=== PATIENT | female | born 1995 | race African-American/Black ===

== ENCOUNTER 2017-10-30 11:12 | Emergency (ER) | payer MEDICAID ==
--- NOTE | 2017-10-30 11:43 | EDM.PDOC ---
ED HPI GENERAL MEDICAL PROBLEM - General Chief Complaint: Abdominal Pain Stated Complaint: ABDOMINAL PAIN Time Seen by Provider: 10/30/17 11:30 Source of Information: Reports: Patient History Limitations: Reports: No Limitations - History of Present Illness INITIAL COMMENTS - FREE TEXT/NARRATIVE: History of present illness: []Patient had left pelvic pain yesterday and looked at her vagina with her fall she saw something bulging out of her. Her pain has subsided, she denies any fevers, chills, , nausea, vomiting or diarrhea. Patient states she's had a pelvic infection about a year ago and has unprotected intercourse with one partner. Patient states that she does not have vaginal discharge or bleeding but he feels like a pelvic infection. Review of systems: As per history of present illness and below otherwise all systems reviewed and negative. Past medical history: As per history of present illness and as reviewed below otherwise noncontributory. Surgical history: As per history of present illness and as reviewed below otherwise noncontributory. Social history: No reported history of drug or alcohol abuse. Family history: As per history of present illness and as reviewed below otherwise noncontributory. Physical exam: General: Well developed, well nourished in NAD HEENT: Atraumatic, normocephalic, pupils reactive, negative for conjunctival pallor or scleral icterus, mucous membranes moist, throat clear, neck supple, nontender, trachea midline. Lungs: Clear to auscultation, breath sounds equal bilaterally, chest nontender. Heart: S1S2, regular, negative for clicks, rubs, or JVD. Abdomen: Soft, nondistended, nontender. Negative for masses or hepatosplenomegaly. Negative for costovertebral tenderness. Pelvis: Stable nontender. Genitourinary: Attempted but patient was too tender to allow small speculum insertion, manual exam shows marked cervical motion tenderness Rectal: Deferred. Extremities: Atraumatic, negative for cords or calf pain. Neurovascular unremarkable. Neuro: Awake, alert, oriented. Cranial nerves II through XII unremarkable. Cerebellum unremarkable. Motor and sensory unremarkable throughout. Exam nonfocal. Diagnostics: [] Therapeutics: []Ceftriaxone and Zithromax Impression: []PID Plan partner should also be tested and treated for any STDs. Definitive disposition and diagnosis as appropriate pending reevaluation and review of above. Bilateral Abdominal Pain Score (Numeric/FACES): 7 - Related Data Allergies Allergy/AdvReac Type Severity Reaction Status Date / Time Penicillins Allergy Edema Verified 10/30/17 11:24 Home Meds: Home Meds . [No Known Home Meds] 10/30/17 [History] Past Medical History - Past Health History Medical/Surgical History: Denies Medical/Surgical History - Infectious Disease History Infectious Disease History: Reports: Herpes Social & Family History - Tobacco Use Smoking Status *Q: Never Smoker - Caffeine Use Caffeine Use: Reports: None - Recreational Drug Use Recreational Drug Use: No ED ROS GENERAL - Review of Systems Review Of Systems: ROS reveals no pertinent complaints other than HPI. ED EXAM, RENAL/ - Physical Exam Exam: See Below (see history of present illness) Course - Vital Signs Last Recorded V/S: Last Vital Signs Temp 97.6 F 10/30/17 13:17 Pulse 78 10/30/17 13:17 Resp 16 10/30/17 13:17 BP 110/78 10/30/17 13:17 Pulse Ox 100 10/30/17 13:17 - Orders/Labs/Meds Orders: Active Orders 24 hr Category Date Time Status Communication Order [RC] STAT Care 10/30/17 12:20 Active HCG QUALITATIVE,URINE [URCHEM] Stat Lab 10/30/17 11:50 Ordered UA W/MICROSCOPIC [URIN] Stat Lab 10/30/17 11:50 Ordered Labs: Laboratory Tests 10/30/17 10/30/17 Range/Units 11:50 11:50 Urine Color YELLOW Urine Appearance CLEAR Urine pH 6.5 (5.0-8.0) Ur Specific [place] <= 1.005 (1.001-1.035) Urine Protein NEGATIVE (NEGATIVE) mg/dL Urine Glucose (UA) NEGATIVE (NEGATIVE) mg/dL Urine Ketones NEGATIVE (NEGATIVE) mg/dL Urine Occult Blood NEGATIVE (NEGATIVE) Urine Nitrite NEGATIVE (NEGATIVE) Urine Bilirubin NEGATIVE (NEGATIVE) Urine Urobilinogen 0.2 (<2.0) EU/dL Ur Leukocyte Esterase NEGATIVE (NEGATIVE) Urine RBC 0-1 (0-2/HPF) Urine WBC 0-2 (0-5/HPF) Ur Epithelial Cells FEW (NONE-FEW) Urine Bacteria RARE (NEGATIVE) Urine HCG, Qual NEGATIVE (NEGATIVE) Meds: Medications Discontinued Medications Generic Name Dose Route Start Last Admin Trade Name Freq PRN Reason Stop Dose Admin Azithromycin 1,000 mg 10/30/17 13:05 10/30/17 13:13 Zithromax PO 10/30/17 13:06 1,000 mg ONETIME ONE Administration Azithromycin Confirm 10/30/17 13:11 Zithromax Administered 10/30/17 13:12 Dose 1,000 mg .ROUTE .STK-MED ONE Ceftriaxone Sodium 500 mg/ 1 mls @ 1 mls/sec 10/30/17 13:04 10/30/17 13:14 Lidocaine HCl IM 10/30/17 13:05 1 mls/sec ONETIME ONE Administration - Re-Assessments/Exams Free Text/Narrative Re-Assessment/Exam: I did look at this patient's picture on her fall which shows normal vaginal anatomy 10/30/17 11:42 Departure - Departure Time of Disposition: 17:13 Disposition: Home, Self-Care 01 Condition: Good Clinical Impression: PID (acute pelvic inflammatory disease) - Discharge Information *PRESCRIPTION DRUG MONITORING PROGRAM REVIEWED*: Not Applicable *COPY OF PRESCRIPTION DRUG MONITORING REPORT IN PATIENT CARINA: Not Applicable Instructions: Pelvic Inflammatory Disease, [id number] Referrals: PCP,None [Primary Care Provider] - Forms: ED Department Discharge Additional Instructions: The following information is given to patients seen in the emergency department who are being discharged to home. This information is to outline your options for follow-up care. We provide all patients seen in our emergency department with a follow-up referral. The need for follow-up, as well as the timing and circumstances, are variable depending upon the specifics of your emergency department visit. If you don't have a primary care physician on staff, we will provide you with a referral. We always advise you to contact your personal physician following an emergency department visit to inform them of the circumstance of the visit and for follow-up with them and/or the need for any referrals to a consulting specialist. The emergency department will also refer you to a specialist when appropriate. This referral assures that you have the opportunity for follow-up care with a specialist. All of these measure are taken in an effort to provide you with optimal care, which includes your follow-up. Under all circumstances we always encourage you to contact your private physician who remains a resource for coordinating your care. When calling for follow-up care, please make the office aware that this follow-up is from your recent emergency room visit. If for any reason you are refused follow-up, please contact the [facility] Emergency Department at and asked to speak to the emergency department charge nurse. [facility] - [facility] [place] [id number] - My Orders Last 24 Hours: My Active Orders 10/30/17 11:50 HCG QUALITATIVE,URINE [URCHEM] Stat UA W/MICROSCOPIC [URIN] Stat 10/30/17 12:20 Communication Order [RC] STAT - Assessment/Plan Last 24 Hours: My Active Orders 10/30/17 11:50 HCG QUALITATIVE,URINE [URCHEM] Stat UA W/MICROSCOPIC [URIN] Stat 10/30/17 12:20 Communication Order [RC] STAT
[2017-10-30] MEDS ORDERED: cefTRIAXone 500 MG in Lidocaine 1% 1 ML IM ONE (13:04)
[2017-10-30] MEDS ORDERED: Azithromycin 250 MG Tab PO ONE (13:05)
[2017-10-30] MEDS ORDERED: Azithromycin 250 MG Tab ONE (13:11)
== END 2017-10-30 13:45 | disposition home or self-care (01) ==
LOC: MW.ED 11:12
DX: N73.9 Female pelvic inflammatory disease, unspecified (principal); Z88.0 Allergy status to penicillin
CPT/HCPCS: 81001; 81025; 96372; 99284; A9270; J0696; 99283

== ENCOUNTER 2018-08-12 13:43 | Emergency (ER) | payer MEDICAID ==
--- NOTE | 2018-08-12 14:00 | EDM.PDOC ---
ED HPI GENERAL MEDICAL PROBLEM - General Chief Complaint: Genitourinary Problem Stated Complaint: CHECK UP Time Seen by Provider: 08/12/18 13:45 Source of Information: Reports: Patient History Limitations: Reports: No Limitations - History of Present Illness INITIAL COMMENTS - FREE TEXT/NARRATIVE: HISTORY AND PHYSICAL: History of present illness: Patient is a 23-year-old female who presents to the emergency room with complaints of pelvic pain. She states she noticed this last evening after having sexual intercourse. Since that time she has had pelvic discomfort and vaginal discharge. She states she does have a history of PID and STDs, which have been treated with antibiotics. Patient denies any fever, chills, headache, change in vision, syncope or near syncope. Denies any chest pain, back pain, shortness of breath or cough. Denies any nausea, vomiting, diarrhea, constipation or dysuria. Has not noted any blood in urine or stool. Patient has been eating and drinking appropriately. 1, Para 0. Review of systems: As per history of present illness and below otherwise all systems reviewed and negative. Past medical history: As per history of present illness and as reviewed below otherwise noncontributory. Surgical history: As per history of present illness and as reviewed below otherwise noncontributory. Social history: See social history for further information Family history: As per history of present illness and as reviewed below otherwise noncontributory. Physical exam: General: Well-developed and well-nourished 23-year-old -[place] female. Alert and oriented. Nontoxic appearing and in no acute distress. HEENT: Atraumatic, normocephalic, pupils equal and reactive bilaterally, negative for conjunctival pallor or scleral icterus, mucous membranes moist, TMs normal bilaterally, throat clear, neck supple, nontender, trachea midline. No drooling or trismus noted. No meningeal signs. No hot potato voice noted. Lungs: Clear to auscultation, breath sounds equal bilaterally, chest nontender. Heart: S1S2, regular rate and rhythm without overt murmur Abdomen: Soft, nondistended, nontender. Negative for masses or hepatosplenomegaly. Negative for costovertebral tenderness. Pelvis: Stable nontender. Genitourinary: This was done with consent and a fishing instructor at the bedside. Normal -appearing external genitalia. She does have moderate amount of white discharge noted in the vaginal vault. Patient tolerated pelvic exam fair. No cervical motion tenderness. Rectal: Deferred. Skin: Intact, warm, dry. No lesions or rashes noted. Extremities: Atraumatic, moves all extremities per self without difficulty or deficits, negative for cords or calf pain. Neurovascular unremarkable. Neuro: Awake, alert, oriented. Cranial nerves II through XII unremarkable. Cerebellum unremarkable. Motor and sensory unremarkable throughout. Exam nonfocal. Notes: Patient is positive for Gardnerella and candidiasis. We'll treat with Diflucan and Flagyl. Supportive care measures were reviewed and discussed. Encouraged her to follow-up with an PIGMENT MAKING SUPERVISOR or primary care for further evaluation and management of this. Voices understanding and is agreeable to plan of care. Denies any further questions or concerns at this time. Diagnostics: CBC, CMP, UA, UC, wet prep, gonorrhea and chlamydia Therapeutics: None Prescription: Flagyl BID x 7 days Diflucan Impression: Bacterial Vaginosis Candidiasis Plan: 1. While taking the medications avoid an sexual activity. 2. No alcohol while taking the Flagyl as this can cause severe nausea and vomiting 3. Please follow-up with the PIGMENT MAKING SUPERVISOR as we discussed. Return to the ED as needed and as discussed. Definitive disposition and diagnosis as appropriate pending reevaluation and review of above. Vaginal Pain Score (Numeric/FACES): 7 - Related Data Allergies Allergy/AdvReac Type Severity Reaction Status Date / Time Penicillins Allergy Edema Verified 08/12/18 14:06 Home Meds: Home Meds . [No Known Home Meds] 10/30/17 [History] Past Medical History - Past Health History Medical/Surgical History: Denies Medical/Surgical History - Infectious Disease History Infectious Disease History: Reports: Herpes Social & Family History - Caffeine Use Caffeine Use: Reports: None ED ROS GENERAL - Review of Systems Review Of Systems: ROS reveals no pertinent complaints other than HPI. ED EXAM, RENAL/ - Physical Exam Exam: See Below (See dictation) Course - Vital Signs Last Recorded V/S: Last Vital Signs Temp 98.3 F 08/12/18 14:03 Pulse 78 08/12/18 15:16 Resp 18 08/12/18 15:16 BP 122/76 08/12/18 15:16 Pulse Ox 98 08/12/18 15:16 - Orders/Labs/Meds Orders: Active Orders 24 hr Category Date Time Status CHLAMYDIA AND GONORRHEA BY TMA Stat Lab 08/12/18 14:30 Received CULTURE URINE [RM] Stat Lab 08/12/18 14:24 Received Labs: Laboratory Tests 08/12/18 08/12/18 08/12/18 Range/Units 14:22 14:22 14:24 WBC 5.48 (4.0-11.0) K/uL RBC 4.91 (4.30-5.90) M/uL Hgb 14.3 (12.0-16.0) g/dL Hct 43.9 (36.0-46.0) % MCV 89.4 (80.0-98.0) fL MCH 29.1 (27.0-32.0) pg MCHC 32.6 (31.0-37.0) g/dL RDW Std Deviation 45.9 (28.0-62.0) fl RDW Coeff of Dalia 14 (11.0-15.0) % Plt Count 317 (150-400) K/uL MPV 10.80 (7.40-12.00) fL Neut % (Auto) 55.9 (48.0-80.0) % Lymph % (Auto) 32.7 (16.0-40.0) % [place] % (Auto) 8.6 (0.0-15.0) % Eos % (Auto) 2.4 (0.0-7.0) % Baso % (Auto) 0.4 (0.0-1.5) % Neut # (Auto) 3.1 (1.4-5.7) K/uL Lymph # (Auto) 1.8 (0.6-2.4) K/uL [place] # (Auto) 0.5 (0.0-0.8) K/uL Eos # (Auto) 0.1 (0.0-0.7) K/uL Baso # (Auto) 0.0 (0.0-0.1) K/uL Nucleated RBC % 0.0 /100WBC Nucleated RBCs # 0 K/uL Sodium 140 (136-145) mmol/L Potassium 3.7 (3.5-5.1) mmol/L Chloride 105 (98-107) mmol/L Carbon Dioxide 22.3 (21.0-32.0) mmol/L BUN 16 (7.0-18.0) mg/dL Creatinine 0.8 (0.6-1.0) mg/dL Est Cr Clr Drug Dosing 79.90 mL/min Estimated GFR (MDRD) > 60.0 ml/min Glucose 76 (74-106) mg/dL Calcium 9.5 (8.5-10.1) mg/dL Total Bilirubin 0.3 (0.2-1.0) mg/dL AST 21 (15-37) IU/L ALT 28 (14-63) IU/L Alkaline Phosphatase 73 (46-116) U/L Total Protein 8.3 H (6.4-8.2) g/dL Albumin 3.8 (3.4-5.0) g/dL Globulin 4.5 H (2.6-4.0) g/dL Albumin/Globulin Ratio 0.8 L (0.9-1.6) Urine Color YELLOW Urine Appearance CLEAR Urine pH 5.5 (5.0-8.0) Ur Specific [place] >= 1.030 (1.001-1.035) Urine Protein NEGATIVE (NEGATIVE) mg/dL Urine Glucose (UA) NEGATIVE (NEGATIVE) mg/dL Urine Ketones NEGATIVE (NEGATIVE) mg/dL Urine Occult Blood TRACE-INTACT H (NEGATIVE) Urine Nitrite NEGATIVE (NEGATIVE) Urine Bilirubin NEGATIVE (NEGATIVE) Urine Urobilinogen 0.2 (<2.0) EU/dL Ur Leukocyte Esterase TRACE H (NEGATIVE) Urine RBC 0-2 (0-2/HPF) Urine WBC 2-4 (0-5/HPF) Ur Epithelial Cells MODERATE (NONE-FEW) Amorphous Sediment LIGHT (NEGATIVE) Urine Bacteria FEW (NEGATIVE) Urine Mucus LIGHT (NONE-MOD) Urine HCG, Qual (NEGATIVE) [place] species DNA (NEGATIVE) Gardnerella DNA Probe (NEGATIVE) Trichomonas DNA Probe (NEGATIVE) 08/12/18 08/12/18 Range/Units 14:24 14:30 WBC (4.0-11.0) K/uL RBC (4.30-5.90) M/uL Hgb (12.0-16.0) g/dL Hct (36.0-46.0) % MCV (80.0-98.0) fL MCH (27.0-32.0) pg MCHC (31.0-37.0) g/dL RDW Std Deviation (28.0-62.0) fl RDW Coeff of Dalia (11.0-15.0) % Plt Count (150-400) K/uL MPV (7.40-12.00) fL Neut % (Auto) (48.0-80.0) % Lymph % (Auto) (16.0-40.0) % [place] % (Auto) (0.0-15.0) % Eos % (Auto) (0.0-7.0) % Baso % (Auto) (0.0-1.5) % Neut # (Auto) (1.4-5.7) K/uL Lymph # (Auto) (0.6-2.4) K/uL [place] # (Auto) (0.0-0.8) K/uL Eos # (Auto) (0.0-0.7) K/uL Baso # (Auto) (0.0-0.1) K/uL Nucleated RBC % /100WBC Nucleated RBCs # K/uL Sodium (136-145) mmol/L Potassium (3.5-5.1) mmol/L Chloride (98-107) mmol/L Carbon Dioxide (21.0-32.0) mmol/L BUN (7.0-18.0) mg/dL Creatinine (0.6-1.0) mg/dL Est Cr Clr Drug Dosing mL/min Estimated GFR (MDRD) ml/min Glucose (74-106) mg/dL Calcium (8.5-10.1) mg/dL Total Bilirubin (0.2-1.0) mg/dL AST (15-37) IU/L ALT (14-63) IU/L Alkaline Phosphatase (46-116) U/L Total Protein (6.4-8.2) g/dL Albumin (3.4-5.0) g/dL Globulin (2.6-4.0) g/dL Albumin/Globulin Ratio (0.9-1.6) Urine Color Urine Appearance Urine pH (5.0-8.0) Ur Specific [place] (1.001-1.035) Urine Protein (NEGATIVE) mg/dL Urine Glucose (UA) (NEGATIVE) mg/dL Urine Ketones (NEGATIVE) mg/dL Urine Occult Blood (NEGATIVE) Urine Nitrite (NEGATIVE) Urine Bilirubin (NEGATIVE) Urine Urobilinogen (<2.0) EU/dL Ur Leukocyte Esterase (NEGATIVE) Urine RBC (0-2/HPF) Urine WBC (0-5/HPF) Ur Epithelial Cells (NONE-FEW) Amorphous Sediment (NEGATIVE) Urine Bacteria (NEGATIVE) Urine Mucus (NONE-MOD) Urine HCG, Qual NEGATIVE (NEGATIVE) [place] species DNA POSITIVE H (NEGATIVE) Gardnerella DNA Probe POSITIVE H (NEGATIVE) Trichomonas DNA Probe NEGATIVE (NEGATIVE) Departure - Departure Time of Disposition: 15:48 Disposition: Home, Self-Care 01 Clinical Impression: Bacterial vaginosis, Candidiasis - Discharge Information Instructions: Bacterial Vaginosis, [id number] Referrals: PCP,Unknown [Primary Care Provider] - Forms: ED Department Discharge Additional Instructions: The following information is given to patients seen in the emergency department who are being discharged to home. This information is to outline your options for follow-up care. We provide all patients seen in our emergency department with a follow-up referral. The need for follow-up, as well as the timing and circumstances, are variable depending upon the specifics of your emergency department visit. If you don't have a primary care physician on staff, we will provide you with a referral. We always advise you to contact your personal physician following an emergency department visit to inform them of the circumstance of the visit and for follow-up with them and/or the need for any referrals to a consulting specialist. The emergency department will also refer you to a specialist when appropriate. This referral assures that you have the opportunity for follow-up care with a specialist. All of these measure are taken in an effort to provide you with optimal care, which includes your follow-up. Under all circumstances we always encourage you to contact your private physician who remains a resource for coordinating your care. When calling for follow-up care, please make the office aware that this follow-up is from your recent emergency room visit. If for any reason you are refused follow-up, please contact the [facility] Emergency Department at and asked to speak to the emergency department charge nurse. [facility] [address] [place] [id number] [facility] [address] [place] [address] 1. While taking the medications avoid an sexual activity. 2. No alcohol while taking the Flagyl as this can cause severe nausea and vomiting 3. Please follow-up with the PIGMENT MAKING SUPERVISOR as we discussed. Return to the ED as needed and as discussed. - My Orders Last 24 Hours: My Active Orders 08/12/18 14:24 CULTURE URINE [RM] Stat 08/12/18 14:30 CHLAMYDIA AND GONORRHEA BY TMA Stat - Assessment/Plan Last 24 Hours: My Active Orders 08/12/18 14:24 CULTURE URINE [RM] Stat 08/12/18 14:30 CHLAMYDIA AND GONORRHEA BY TMA Stat
[2018-08-12 15:03] LABS: CHLORIDE,CL 105 mmol/L (98-107); SODIUM,NA 140 mmol/L (136-145)
== END 2018-08-12 16:00 | disposition home or self-care (01) ==
LOC: MW.ED 13:43
DX: N76.0 Acute vaginitis (principal); B96.89 Other specified bacterial agents as the cause of diseases classified elsewhere; B37.3 Candidiasis of vulva and vagina
CPT/HCPCS: 36415; 80053; 81001; 81025; 85025; 87086; 87480; 87491; 87510; 87591; 87660; 99283

== ENCOUNTER 2019-03-02 18:22 | Emergency (ER) | payer MEDICAID, OTHER, SELFPAY ==
--- NOTE | 2019-03-02 18:34 | EDM.PDOC ---
ED HPI GENERAL MEDICAL PROBLEM - General Chief Complaint: General Stated Complaint: PRESSURE IN PELVIC AREA Time Seen by Provider: 03/02/19 18:31 Source of Information: Reports: Patient History Limitations: Reports: No Limitations - History of Present Illness INITIAL COMMENTS - FREE TEXT/NARRATIVE: HISTORY AND PHYSICAL: History of present illness: Patient is a 24-year-old female who presents to the emergency room today with complaints of urinary frequency and pelvic pressure. She is concerned she may have a bladder infection. She states she is also concerned she may be . She has been having unprotected sex with her boyfriend. States she has not intentionally trying to get , and does not take control. I saw this patient on 08/12/18 for concerns of PID and STDs. At that time she did test positive for bacterial vaginosis/candidiasis and was treated with Diflucan and Flagyl. She states she has no current concerns of STDs as she has been monogamous with her boyfriend. Denies any vaginal discharge, bleeding or odor. Patient denies any fever, chills, headache, change in vision, syncope or near syncope. Denies any chest pain, back pain, shortness of breath or cough. Denies any abdominal pain, nausea, vomiting, diarrhea, constipation or dysuria. Has not noted any blood in urine or stool. Patient has been eating and drinking appropriately. Review of systems: As per history of present illness and below otherwise all systems reviewed and negative. Past medical history: As per history of present illness and as reviewed below otherwise noncontributory. Surgical history: As per history of present illness and as reviewed below otherwise noncontributory. Social history: See social history for further information Family history: As per history of present illness and as reviewed below otherwise noncontributory. Physical exam: General: Well-developed and well-nourished 24-year-old -[place] female. Alert and oriented. Nontoxic appearing and in no acute distress. HEENT: Atraumatic, normocephalic, pupils equal and reactive bilaterally, negative for conjunctival pallor or scleral icterus, mucous membranes moist, trachea midline. No drooling or trismus noted. No meningeal signs. No hot potato voice noted. Lungs: Clear to auscultation, breath sounds equal bilaterally, chest nontender. Heart: S1S2, regular rate and rhythm without overt murmur Abdomen: Soft, nondistended, nontender. Negative for masses or hepatosplenomegaly. Negative for costovertebral tenderness. Pelvis: Stable. Suprapubic tenderness Skin: Intact, warm, dry. No lesions or rashes noted. Extremities: Atraumatic, moves all extremities per self without difficulty or deficits, negative for cords or calf pain. Neurovascular unremarkable. Neuro: Awake, alert, oriented. Cranial nerves II through XII unremarkable. Cerebellum unremarkable. Motor and sensory unremarkable throughout. Exam nonfocal. Notes: Lab work is unremarkable. We discussed that if she has any further complaints or concerns she should follow up with the primary care provider. She re-states that she does not have any concerns of STDs. Supportive care measures were reviewed and discussed. Voices understanding and is agreeable to plan of care. Denies any further questions or concerns at this time. Diagnostics: UA, HCGU Therapeutics: None Prescription: None Impression: Encounter for medical screening exam Plan: 1. Please use protection when having sex. If pelvic pain persists I would recommend getting checked for STDs. This can be done at [facility]. 2. Use Tylenol and/or ibuprofen as needed for pain management. 3. Establish care with a primary care provider for your health needs and reevaluation. Return to the ED as needed and as discussed. Definitive disposition and diagnosis as appropriate pending reevaluation and review of above. Pelvic Pain Score (Numeric/FACES): 6 - Related Data Allergies Allergy/AdvReac Type Severity Reaction Status Date / Time Penicillins Allergy Edema Verified 03/02/19 18:34 Home Meds: Home Meds . [No Known Home Meds] 10/30/17 [History] Past Medical History - Past Health History Medical/Surgical History: Denies Medical/Surgical History - Infectious Disease History Infectious Disease History: Reports: Herpes Social & Family History - Family History Family Medical History: Noncontributory - Caffeine Use Caffeine Use: Reports: None ED ROS GENERAL - Review of Systems Review Of Systems: Comprehensive ROS is negative, except as noted in HPI. ED EXAM, GENERAL - Physical Exam Exam: See Below (See dictation) Course - Vital Signs Last Recorded V/S: Last Vital Signs Temp 97 F 03/02/19 19:25 Pulse 87 03/02/19 19:25 Resp 18 03/02/19 19:25 BP 125/77 03/02/19 19:25 Pulse Ox 95 03/02/19 19:25 - Orders/Labs/Meds Labs: Laboratory Tests 03/02/19 03/02/19 Range/Units 19:00 19:00 Urine Color YELLOW Urine Appearance CLEAR Urine pH 8.5 H (5.0-8.0) Ur Specific [place] 1.015 (1.001-1.035) Urine Protein NEGATIVE (NEGATIVE) mg/dL Urine Glucose (UA) NEGATIVE (NEGATIVE) mg/dL Urine Ketones NEGATIVE (NEGATIVE) mg/dL Urine Occult Blood NEGATIVE (NEGATIVE) Urine Nitrite NEGATIVE (NEGATIVE) Urine Bilirubin NEGATIVE (NEGATIVE) Urine Urobilinogen 0.2 (<2.0) EU/dL Ur Leukocyte Esterase NEGATIVE (NEGATIVE) Urine HCG, Qual NEGATIVE (NEGATIVE) Departure - Departure Time of Disposition: 19:20 Disposition: Home, Self-Care 01 Clinical Impression: Encounter for medical screening examination - Discharge Information Instructions: Medical Screening Exam Referrals: PCP,Not In Area [Primary Care Provider] - Forms: ED Department Discharge Additional Instructions: The following information is given to patients seen in the emergency department who are being discharged to home. This information is to outline your options for follow-up care. We provide all patients seen in our emergency department with a follow-up referral. The need for follow-up, as well as the timing and circumstances, are variable depending upon the specifics of your emergency department visit. If you don't have a primary care physician on staff, we will provide you with a referral. We always advise you to contact your personal physician following an emergency department visit to inform them of the circumstance of the visit and for follow-up with them and/or the need for any referrals to a consulting specialist. The emergency department will also refer you to a specialist when appropriate. This referral assures that you have the opportunity for follow-up care with a specialist. All of these measure are taken in an effort to provide you with optimal care, which includes your follow-up. Under all circumstances we always encourage you to contact your private physician who remains a resource for coordinating your care. When calling for follow-up care, please make the office aware that this follow-up is from your recent emergency room visit. If for any reason you are refused follow-up, please contact the [facility] Emergency Department at and asked to speak to the emergency department charge nurse. [facility] [address] [place] [address] [facility] [address] [place] [address] [facility] (STD screening) [address] [facility] 1. Please use protection when having sex. If pelvic pain persists I would recommend getting checked for STDs. This can be done at [facility]. 2. Use Tylenol and/or ibuprofen as needed for pain management. 3. Establish care with a primary care provider for your health needs and reevaluation. Return to the ED as needed and as discussed.
== END 2019-03-02 19:25 | disposition home or self-care (01) ==
LOC: MW.ED 18:22
DX: R35.0 Frequency of micturition (principal); Z88.0 Allergy status to penicillin
CPT/HCPCS: 81003; 81025; 99282; 99284

== ENCOUNTER 2019-04-25 02:33 | Emergency (ER) | payer SELFPAY ==
--- NOTE | 2019-04-25 03:06 | EDM.PDOC ---
ED HPI GENERAL MEDICAL PROBLEM - General Chief Complaint: Lower Extremity Injury/Pain Stated Complaint: PELVIC PAIN Time Seen by Provider: 04/25/19 03:05 Source of Information: Reports: Patient History Limitations: Reports: No Limitations - History of Present Illness INITIAL COMMENTS - FREE TEXT/NARRATIVE: -25year-old female presents the emergency room chief complaint of right-sided flank pain and dysuria for the past 3 months. Patient denies fever chills or vaginal discharge Onset: Gradual Duration: Week(s): Location: Reports: Back, Pelvis Quality: Reports: Ache Severity: Mild Improves with: Reports: None Worsens with: Reports: None Associated Symptoms: Reports: No Other Symptoms, Nausea/Vomiting, Weakness right hip Pain Score (Numeric/FACES): 7 - Related Data Allergies Allergy/AdvReac Type Severity Reaction Status Date / Time Penicillins Allergy Edema Verified 04/25/19 02:46 Home Meds: Home Meds . [No Known Home Meds] 10/30/17 [History] Past Medical History - Past Health History Medical/Surgical History: Denies Medical/Surgical History HEENT History: Reports: None Cardiovascular History: Reports: None Respiratory History: Reports: None Gastrointestinal History: Reports: None Genitourinary History: Reports: None OFFICE ENGINEER History: Reports: None Musculoskeletal History: Reports: None Neurological History: Reports: None Psychiatric History: Reports: None Endocrine/Metabolic History: Reports: None Insulin Pump Model and Traffic Control Supervisor: None Hematologic History: Reports: None Immunologic History: Reports: None Oncologic (Cancer) History: Reports: None Dermatologic History: Reports: None - Infectious Disease History Infectious Disease History: Reports: Herpes - Past Surgical History Head Surgeries/Procedures: Reports: None Social & Family History - Family History Family Medical History: Noncontributory - Tobacco Use Smoking Status *Q: Never Smoker - Caffeine Use Caffeine Use: Reports: None - Recreational Drug Use Recreational Drug Use: No Review of Systems - Review of Systems Review Of Systems: Comprehensive ROS is negative, except as noted in HPI. ED EXAM, GENERAL - Physical Exam Exam: Not Obtained Exam Limited By: No Limitations General Appearance: Alert, WD/WN, No Apparent Distress Eye Exam: Bilateral Eye: PERRL Ears: Normal External Exam, Normal TMs Ear Exam: Bilateral Ear: Auricle Normal, Canal Normal, TM normal Course - Vital Signs Text/Narrative:: 4-year-old female presents the emergency room with right-sided abdominal pain pain going to the back. Patient in the midst of evaluation unable to get CT scan of the abdomen results at this time. The patient did not wish to stay to obtain these results so she left home eloped. Patient having no pain at this time. Patients is pain at this time patient might have had #1. Stone 2. Lower abdominal pain Last Recorded V/S: Last Vital Signs Temp 98.8 F 04/25/19 02:45 Pulse 92 04/25/19 02:45 Resp 18 04/25/19 02:45 BP 128/87 04/25/19 02:45 Pulse Ox 98 04/25/19 02:45 - Orders/Labs/Meds Orders: Active Orders 24 hr Category Date Time Status Abdomen Pelvis wo Cont [CT] Stat Exams 04/25/19 03:02 Taken Labs: Laboratory Tests 04/25/19 04/25/19 04/25/19 Range/Units 02:45 02:45 03:10 WBC 7.33 (4.0-11.0) K/uL RBC 4.77 (4.30-5.90) M/uL Hgb 14.3 (12.0-16.0) g/dL Hct 43.0 (36.0-46.0) % MCV 90.1 (80.0-98.0) fL MCH 30.0 (27.0-32.0) pg MCHC 33.3 (31.0-37.0) g/dL RDW Std Deviation 44.3 (28.0-62.0) fl RDW Coeff of Dalia 14 (11.0-15.0) % Plt Count 359 (150-400) K/uL MPV 10.10 (7.40-12.00) fL Neut % (Auto) 53.0 (48.0-80.0) % Lymph % (Auto) 38.6 (16.0-40.0) % Dawes % (Auto) 7.1 (0.0-15.0) % Eos % (Auto) 1.2 (0.0-7.0) % Baso % (Auto) 0.1 (0.0-1.5) % Neut # (Auto) 3.9 (1.4-5.7) K/uL Lymph # (Auto) 2.8 H (0.6-2.4) K/uL Dawes # (Auto) 0.5 (0.0-0.8) K/uL Eos # (Auto) 0.1 (0.0-0.7) K/uL Baso # (Auto) 0.0 (0.0-0.1) K/uL Nucleated RBC % 0.0 /100WBC Nucleated RBCs # 0 K/uL Sodium (136-145) mmol/L Potassium (3.5-5.1) mmol/L Chloride (98-107) mmol/L Carbon Dioxide (21.0-32.0) mmol/L BUN (7.0-18.0) mg/dL Creatinine (0.6-1.0) mg/dL Est Cr Clr Drug Dosing mL/min Estimated GFR (MDRD) ml/min Glucose (74-106) mg/dL Calcium (8.5-10.1) mg/dL Total Bilirubin (0.2-1.0) mg/dL AST (15-37) IU/L ALT (14-63) IU/L Alkaline Phosphatase (46-116) U/L Total Protein (6.4-8.2) g/dL Albumin (3.4-5.0) g/dL Globulin (2.6-4.0) g/dL Albumin/Globulin Ratio (0.9-1.6) Urine Color YELLOW Urine Appearance CLEAR Urine pH 7.0 (5.0-8.0) Ur Specific [place] 1.020 (1.001-1.035) Urine Protein NEGATIVE (NEGATIVE) mg/dL Urine Glucose (UA) NEGATIVE (NEGATIVE) mg/dL Urine Ketones TRACE H (NEGATIVE) mg/dL Urine Occult Blood TRACE-INTACT H (NEGATIVE) Urine Nitrite NEGATIVE (NEGATIVE) Urine Bilirubin NEGATIVE (NEGATIVE) Urine Urobilinogen 0.2 (<2.0) EU/dL Ur Leukocyte Esterase NEGATIVE (NEGATIVE) Urine RBC 1-2 (0-2/HPF) Urine WBC 0-1 (0-5/HPF) Ur Epithelial Cells OCCASIONAL (NONE-FEW) Urine Bacteria RARE (NEGATIVE) Urine HCG, Qual NEGATIVE (NEGATIVE) 04/25/19 Range/Units 03:10 WBC (4.0-11.0) K/uL RBC (4.30-5.90) M/uL Hgb (12.0-16.0) g/dL Hct (36.0-46.0) % MCV (80.0-98.0) fL MCH (27.0-32.0) pg MCHC (31.0-37.0) g/dL RDW Std Deviation (28.0-62.0) fl RDW Coeff of Dalia (11.0-15.0) % Plt Count (150-400) K/uL MPV (7.40-12.00) fL Neut % (Auto) (48.0-80.0) % Lymph % (Auto) (16.0-40.0) % Dawes % (Auto) (0.0-15.0) % Eos % (Auto) (0.0-7.0) % Baso % (Auto) (0.0-1.5) % Neut # (Auto) (1.4-5.7) K/uL Lymph # (Auto) (0.6-2.4) K/uL Dawes # (Auto) (0.0-0.8) K/uL Eos # (Auto) (0.0-0.7) K/uL Baso # (Auto) (0.0-0.1) K/uL Nucleated RBC % /100WBC Nucleated RBCs # K/uL Sodium 140 (136-145) mmol/L Potassium 3.4 L (3.5-5.1) mmol/L Chloride 101 (98-107) mmol/L Carbon Dioxide 27.5 (21.0-32.0) mmol/L BUN 12 (7.0-18.0) mg/dL Creatinine 0.8 (0.6-1.0) mg/dL Est Cr Clr Drug Dosing 79.23 mL/min Estimated GFR (MDRD) > 60.0 ml/min Glucose 109 H (74-106) mg/dL Calcium 9.2 (8.5-10.1) mg/dL Total Bilirubin 0.2 (0.2-1.0) mg/dL AST 19 (15-37) IU/L ALT 36 (14-63) IU/L Alkaline Phosphatase 64 (46-116) U/L Total Protein 8.3 H (6.4-8.2) g/dL Albumin 4.3 (3.4-5.0) g/dL Globulin 4.0 (2.6-4.0) g/dL Albumin/Globulin Ratio 1.1 (0.9-1.6) Urine Color Urine Appearance Urine pH (5.0-8.0) Ur Specific [place] (1.001-1.035) Urine Protein (NEGATIVE) mg/dL Urine Glucose (UA) (NEGATIVE) mg/dL Urine Ketones (NEGATIVE) mg/dL Urine Occult Blood (NEGATIVE) Urine Nitrite (NEGATIVE) Urine Bilirubin (NEGATIVE) Urine Urobilinogen (<2.0) EU/dL Ur Leukocyte Esterase (NEGATIVE) Urine RBC (0-2/HPF) Urine WBC (0-5/HPF) Ur Epithelial Cells (NONE-FEW) Urine Bacteria (NEGATIVE) Urine HCG, Qual (NEGATIVE) Departure - Departure Time of Disposition: 06:22 Disposition: Eloped 07 Condition: Good Clinical Impression: Abdominal pain determined by examination - Discharge Information Referrals: PCP,None [Primary Care Provider] - Forms: ED Department Discharge Sepsis Event Note - Evaluation Sepsis Screening Result: No Definite Risk - Focused Exam Vital Signs: Vital Signs Temp Pulse Resp BP Pulse Ox 04/25/19 02:45 98.8 F 92 18 128/87 98 Date Exam was Performed: 04/25/19 Time Exam was Performed: 06:21 - My Orders Last 24 Hours: My Active Orders 04/25/19 03:02 Abdomen Pelvis wo Cont [CT] Stat - Assessment/Plan Last 24 Hours: My Active Orders 04/25/19 03:02 Abdomen Pelvis wo Cont [CT] Stat
[2019-04-25 03:34] LABS: BLOOD UREA NITROGEN,BUN 12 mg/dL (7.0-18.0); CARBON DIOXIDE,CO2 27.5 mmol/L (21.0-32.0); CHLORIDE,CL 101 mmol/L (98-107); GLUCOSE RANDOM 109 mg/dL (74-106); POTASSIUM,K 3.4 mmol/L (3.5-5.1); SODIUM,NA 140 mmol/L (136-145)
--- NOTE | 2019-04-25 06:52 | CT ---
CT abdomen and pelvis Technique: Multiple axial sections were obtained from above the dome of the diaphragm inferiorly through the pubic symphysis. Intravenous and oral contrast not utilized. Comparison: No prior abdominal imaging. Findings: Visualized lung bases show nothing acute. Liver contains no focal abnormality. Spleen appears within normal limits. Kidneys show no hydronephrosis or mass. Adrenal glands show no nodule. No discrete abnormality appreciated within the pancreas. Aorta shows no aneurysm. Appendix is seen which is normal in size. No discrete pelvic mass or adenopathy is seen. Slight increased stool is seen within portions of the colon. No free fluid or inflammatory change is seen. Bone window settings were reviewed which appear within normal limits for the patient's age. Impression: 1. Slight increased stool within the colon. 2. Nothing acute is appreciated on noncontrast CT study of the abdomen and pelvis. Diagnostic code #2 This report was dictated in [place] Standard Time
== END 2019-04-25 05:42 | disposition left against medical advice (07) ==
LOC: MW.ED 02:33
DX: R10.9 Unspecified abdominal pain (principal); Z88.0 Allergy status to penicillin
CPT/HCPCS: 36415; 74176; 74176-26; 80053; 81001; 81025; 85025; 99284-25

== ENCOUNTER 2019-06-25 19:23 | Emergency (ER) | payer MEDICAID, OTHER ==
--- NOTE | 2019-06-25 20:44 | EDM.PDOC ---
ED HPI GENERAL MEDICAL PROBLEM - General Chief Complaint: General Stated Complaint: FLU Time Seen by Provider: 06/25/19 19:57 Source of Information: Reports: Patient History Limitations: Reports: No Limitations - History of Present Illness INITIAL COMMENTS - FREE TEXT/NARRATIVE: 54-year-old female presents with 9-day history of perirectal pain and a four- day history of fever of unknown source. Patient denies any coughing, stuffy nose, body aches, sore throat. Patient also says that she is . Her last menstrual period was about 24 days ago but she says she had a positive test at home. Patient denies any vision changes, weakness, numbness, nausea, vomiting, chest pain, shortness of breath. No dysuria. No changes in bowel or bladder habits. No joint pain. Patient also has a history of herpes but she has had no outbreaks recently. anal area Pain Score (Numeric/FACES): 9 - Related Data Allergies Allergy/AdvReac Type Severity Reaction Status Date / Time Penicillins Allergy Edema Verified 06/25/19 19:40 Home Meds: Home Meds Ciprofloxacin [Ciprofloxacin HCl] 500 mg PO BID 7 Days #14 tab 06/25/19 [Rx] Sulfamethoxazole/Trimethoprim [Bactrim Ds Tablet] 1 each PO Q12HR 7 Days #14 tablet 06/25/19 [Rx] metroNIDAZOLE [Metronidazole] 500 mg PO Q12HR 7 Days #14 tablet 06/25/19 [Rx] Past Medical History - Past Health History Medical/Surgical History: Denies Medical/Surgical History HEENT History: Reports: None Cardiovascular History: Reports: None Respiratory History: Reports: None Gastrointestinal History: Reports: None Genitourinary History: Reports: None 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 Musculoskeletal History: Reports: None Neurological History: Reports: None Psychiatric History: Reports: None Endocrine/Metabolic History: Reports: None Insulin Pump Model and Personal Lines Underwriter: N/A Hematologic History: Reports: None Immunologic History: Reports: None Oncologic (Cancer) History: Reports: None Dermatologic History: Reports: None - Infectious Disease History Infectious Disease History: Reports: None - Past Surgical History Head Surgeries/Procedures: Reports: None Social & Family History - Family History Family Medical History: Noncontributory - Tobacco Use Smoking Status *Q: Never Smoker - Caffeine Use Caffeine Use: Reports: Coffee - Recreational Drug Use Recreational Drug Use: No ED ROS GENERAL - Review of Systems Review Of Systems: Comprehensive ROS is negative, except as noted in HPI. ED EXAM, GENERAL - Physical Exam Exam: See Below Free Text/Narrative:: General: No acute distress. Comfortable. Heent: Examination revealed no pallor, no icterus, no lymphadenopathy. The patient has normal posterior pharynx, moist mucous membranes. Neck: Supple. No JVD. No rigidity. Heart: Normal rate. Reg rhythm. No murmurs appreciated. Lungs: Bilaterally clear to auscultation. No focal findings. Abdomen: Nontender, non-distended, soft, no CVA tenderness. Neuro: Pt is moving all four extremities. EOMI. PERRL. Normal speech. Skin: Exposed areas appeared normally perfused, warm, normal color with no meaningful rashes or lesions. Extremities: Peripheral examination revealed no pedal edema. Peripheral pulses were 2+. : Dentia normal-appearing external structures. No redness or obvious swelling. There is no discharge per anus. However palpation around the circumference of the anus posteriorly generates exquisite pain and there seems to be some induration which is symmetric and bilateral posteriorly. Patient did not tolerate this exam very well. Pt delines true rectal (internal) exam Course - Vital Signs Text/Narrative:: Patient with 8 days or 9 days of perirectal pain which she calls a hemorrhoid, and now fevers for 4 to 5 days. There is only some suggestion of systemic illness. I was expecting a large julio cesar-rectal abscess. However the external structures appear normal. Palpation of the posterior perirectal structures causes exquisite tenderness. She does not tolerate this very well but still cannot tolerate a true rectal exam and probably would not tolerate ultrasound interrogation of the region. Accordingly, CT scan may be the best way to assess for possible deep abscess. Last Recorded V/S: Last Vital Signs Temp 98.6 F 06/25/19 23: Pulse 120 H 06/25/19 23:18 Resp 18 06/25/19 23:18 BP 122/85 06/25/19 23:18 Pulse Ox 99 06/25/19 23:18 - Orders/Labs/Meds Labs: Laboratory Tests 06/25/19 06/25/19 06/25/19 Range/Units 21:10 21:10 21:10 WBC 18.93 H (4.0-11.0) K/uL RBC 4.77 (4.30-5.90) M/uL Hgb 14.4 (12.0-16.0) g/dL Hct 42.8 (36.0-46.0) % MCV 89.7 (80.0-98.0) fL MCH 30.2 (27.0-32.0) pg MCHC 33.6 (31.0-37.0) g/dL RDW Std Deviation 41.4 (28.0-62.0) fl RDW Coeff of Dalia 13 (11.0-15.0) % Plt Count 388 (150-400) K/uL MPV 10.30 (7.40-12.00) fL Neut % (Auto) 76.7 (48.0-80.0) % Lymph % (Auto) 11.6 L (16.0-40.0) % [place] % (Auto) 11.4 (0.0-15.0) % Eos % (Auto) 0.2 (0.0-7.0) % Baso % (Auto) 0.1 (0.0-1.5) % Neut # (Auto) 14.5 H (1.4-5.7) K/uL Lymph # (Auto) 2.2 (0.6-2.4) K/uL [place] # (Auto) 2.2 H (0.0-0.8) K/uL Eos # (Auto) 0.0 (0.0-0.7) K/uL Baso # (Auto) 0.0 (0.0-0.1) K/uL Nucleated RBC % 0.0 /100WBC Nucleated RBCs # 0 K/uL ESR 13 (0-19) mm/hr Sodium 139 (136-145) mmol/L Potassium 3.6 (3.5-5.1) mmol/L Chloride 100 (98-107) mmol/L Carbon Dioxide 24.6 (21.0-32.0) mmol/L BUN 5 L (7.0-18.0) mg/dL Creatinine 0.7 (0.6-1.0) mg/dL Est Cr Clr Drug Dosing 90.55 mL/min Estimated GFR (MDRD) > 60.0 ml/min Glucose 89 (74-106) mg/dL Calcium 10.0 (8.5-10.1) mg/dL Total Bilirubin 0.3 (0.2-1.0) mg/dL AST 41 H (15-37) IU/L ALT 89 H (14-63) IU/L Alkaline Phosphatase 73 (46-116) U/L C-Reactive Protein 11.50 H (0.00-0.90) mg/dL Total Protein 8.8 H (6.4-8.2) g/dL Albumin 3.2 L (3.4-5.0) g/dL Globulin 5.6 H (2.6-4.0) g/dL Albumin/Globulin Ratio 0.6 L (0.9-1.6) HCG, Qual (NEG) Urine Color Urine Appearance Urine pH (5.0-8.0) Ur Specific [place] (1.001-1.035) Urine Protein (NEGATIVE) mg/dL Urine Glucose (UA) (NEGATIVE) mg/dL Urine Ketones (NEGATIVE) mg/dL Urine Occult Blood (NEGATIVE) Urine Nitrite (NEGATIVE) Urine Bilirubin (NEGATIVE) Urine Urobilinogen (<2.0) EU/dL Ur Leukocyte Esterase (NEGATIVE) Urine RBC (0-2/HPF) Urine WBC (0-5/HPF) Ur Epithelial Cells (NONE-FEW) Urine Bacteria (NEGATIVE) Urine Mucus (NONE-MOD) 06/25/19 06/25/19 Range/Units 21:25 21:25 WBC (4.0-11.0) K/uL RBC (4.30-5.90) M/uL Hgb (12.0-16.0) g/dL Hct (36.0-46.0) % MCV (80.0-98.0) fL MCH (27.0-32.0) pg MCHC (31.0-37.0) g/dL RDW Std Deviation (28.0-62.0) fl RDW Coeff of Dalia (11.0-15.0) % Plt Count (150-400) K/uL MPV (7.40-12.00) fL Neut % (Auto) (48.0-80.0) % Lymph % (Auto) (16.0-40.0) % [place] % (Auto) (0.0-15.0) % Eos % (Auto) (0.0-7.0) % Baso % (Auto) (0.0-1.5) % Neut # (Auto) (1.4-5.7) K/uL Lymph # (Auto) (0.6-2.4) K/uL [place] # (Auto) (0.0-0.8) K/uL Eos # (Auto) (0.0-0.7) K/uL Baso # (Auto) (0.0-0.1) K/uL Nucleated RBC % /100WBC Nucleated RBCs # K/uL ESR (0-19) mm/hr Sodium (136-145) mmol/L Potassium (3.5-5.1) mmol/L Chloride (98-107) mmol/L Carbon Dioxide (21.0-32.0) mmol/L BUN (7.0-18.0) mg/dL Creatinine (0.6-1.0) mg/dL Est Cr Clr Drug Dosing mL/min Estimated GFR (MDRD) ml/min Glucose (74-106) mg/dL Calcium (8.5-10.1) mg/dL Total Bilirubin (0.2-1.0) mg/dL AST (15-37) IU/L ALT (14-63) IU/L Alkaline Phosphatase (46-116) U/L C-Reactive Protein (0.00-0.90) mg/dL Total Protein (6.4-8.2) g/dL Albumin (3.4-5.0) g/dL Globulin (2.6-4.0) g/dL Albumin/Globulin Ratio (0.9-1.6) HCG, Qual POSITIVE H (NEG) Urine Color YELLOW Urine Appearance CLEAR Urine pH 6.0 (5.0-8.0) Ur Specific [place] <= 1.005 (1.001-1.035) Urine Protein NEGATIVE (NEGATIVE) mg/dL Urine Glucose (UA) NEGATIVE (NEGATIVE) mg/dL Urine Ketones NEGATIVE (NEGATIVE) mg/dL Urine Occult Blood SMALL H (NEGATIVE) Urine Nitrite NEGATIVE (NEGATIVE) Urine Bilirubin NEGATIVE (NEGATIVE) Urine Urobilinogen 0.2 (<2.0) EU/dL Ur Leukocyte Esterase NEGATIVE (NEGATIVE) Urine RBC 0-1 (0-2/HPF) Urine WBC 0-1 (0-5/HPF) Ur Epithelial Cells FEW (NONE-FEW) Urine Bacteria FEW (NEGATIVE) Urine Mucus LIGHT (NONE-MOD) Meds: Medications Discontinued Medications Generic Name Dose Route Start Last Admin Trade Name Michael PRN Reason Stop Dose Admin Hydrocodone Bitart/Acetaminophen 1 tab 06/25/19 21:04 06/25/19 21:29 [place] 325-5 Mg PO 06/25/19 21:05 1 tab ONETIME ONE Administration Ciprofloxacin 500 mg 06/25/19 22:47 06/25/19 23:14 Ciprofloxacin Hcl PO 06/25/19 22:48 500 mg ONETIME ONE Administration Metronidazole 500 mg 06/25/19 22:44 06/25/19 23:13 Metronidazole PO 06/25/19 22:45 500 mg NOW STA Administration - Re-Assessments/Exams Free Text/Narrative Re-Assessment/Exam: Discussed with Dr. Mack surgeon. We discussed fever, inflammatory markers. He recommends to hold CT scan and have the patient be seen in the office on . We will start antibiotics. Patient will return here with any worsening. 06/25/19 22:34 Departure - Departure Time of Disposition: 22:51 Disposition: Refer to Observation Condition: Good Clinical Impression: Rectal abscess - Discharge Information Prescriptions: metroNIDAZOLE [Metronidazole] 500 mg PO Q12HR 7 Days #14 tablet Sulfamethoxazole/Trimethoprim [Bactrim Ds Tablet] 1 each PO Q12HR 7 Days #14 tablet Ciprofloxacin [Ciprofloxacin HCl] 500 mg PO BID 7 Days #14 tab Instructions: Perirectal Abscess Referrals: PCP,None [Primary Care Provider] - Forms: ED Department Discharge Additional Instructions: Follow-up with Dr. Mack of surgery on . Call before you go. Call around 8:00 in the morning and plan to be there around 8:30 in the morning. Take all of your antibiotics as directed. Return to the emergency department immediately with any worsening or if you feel like your heart rate is fast or you are nauseated. The following information is given to patients seen in the emergency department who are being discharged to home. This information is to outline your options for follow-up care. We provide all patients seen in our emergency department with a follow-up referral. The need for follow-up, as well as the timing and circumstances, are variable depending upon the specifics of your emergency department visit. If you don't have a primary care physician on staff, we will provide you with a referral. We always advise you to contact your personal physician following an emergency department visit to inform them of the circumstance of the visit and for follow-up with them and/or the need for any referrals to a consulting specialist. The emergency department will also refer you to a specialist when appropriate. This referral assures that you have the opportunity for follow-up care with a specialist. All of these measure are taken in an effort to provide you with optimal care, which includes your follow-up. Under all circumstances we always encourage you to contact your private physician who remains a resource for coordinating your care. When calling for follow-up care, please make the office aware that this follow-up is from your recent emergency room visit. If for any reason you are refused follow-up, please contact the [facility] Emergency Department at and asked to speak to the emergency department charge nurse. Sepsis Event Note - Evaluation Sepsis Screening Result: No Definite Risk - Focused Exam Date Exam was Performed: 06/26/19 Time Exam was Performed: 18:55
[2019-06-25] MEDS ORDERED: Acetaminophen/HYDROcodone 325-5 MG Tab PO ONE (21:04)
[2019-06-25 21:40] LABS: BLOOD UREA NITROGEN,BUN 5 mg/dL (7.0-18.0); CARBON DIOXIDE,CO2 24.6 mmol/L (21.0-32.0); CHLORIDE,CL 100 mmol/L (98-107); GLUCOSE RANDOM 89 mg/dL (74-106); POTASSIUM,K 3.6 mmol/L (3.5-5.1); SODIUM,NA 139 mmol/L (136-145)
[2019-06-25] MEDS ORDERED: metroNIDAZOLE 250 MG Tab PO STA (22:44)
[2019-06-25] MEDS ORDERED: Ciprofloxacin 500 MG Tab PO ONE (22:47)
== END 2019-06-25 23:22 | disposition other institution (70) ==
LOC: MW.ED 19:23
DX: K61.1 Rectal abscess (principal); Z88.0 Allergy status to penicillin
CPT/HCPCS: 36415; 80053; 81001; 84703; 85025; 85652; 86140; 99283; A9270

== ENCOUNTER 2019-11-05 00:42 | Emergency (ER) | payer MEDICAID ==
[2019-11-05] MEDS ORDERED: Doxycycline 100 MG Cap PO ONE (01:26)
[2019-11-05] MEDS ORDERED: Ibuprofen 800 MG Tab PO ONE (01:26)
--- NOTE | 2019-11-05 01:30 | EDM.PDOC ---
ED HPI GENERAL MEDICAL PROBLEM - General Chief Complaint: Skin Complaint Stated Complaint: ABCESS TOOTH Time Seen by Provider: 11/05/19 01:18 - History of Present Illness INITIAL COMMENTS - FREE TEXT/NARRATIVE: History of present illness: Patient presents with complaint of an abscess. Patient states she has had this problem before and was treated with antibiotics and it resolved that was several months ago now it is back and hurting again it is in her gluteal cleft. There is been no discharge no fever no chills pressure makes it worse being still makes it better no other complaints no other medical problems Review of systems: As per history of present illness and below otherwise all systems reviewed and negative. Past medical history: As per history of present illness and as reviewed below otherwise noncontributo ry. Surgical history: As per history of present illness and as reviewed below otherwise noncontributory. Social history: No reported history of drug or alcohol abuse. Family history: As per history of present illness and as reviewed below otherwise noncontributory. Physical exam: HEENT: Atraumatic, normocephalic, pupils reactive, negative for conjunctival pallor or scleral icterus, mucous membranes moist, throat clear, neck supple, nontender, trachea midline. Lungs: Clear to auscultation, breath sounds equal bilaterally, chest nontender. Heart: S1S2, regular, negative for clicks, rubs, or JVD. Abdomen: Soft, nondistended, nontender. Negative for masses or hepatosplenomegaly. Negative for costovertebral tenderness. Pelvis: Stable nontender. Genitourinary: Deferred. Rectal: External exam in the gluteal cleft there is a tender firm lesion that is deeper consistent with an abscess no drainage Extremities: Atraumatic, negative for cords or calf pain. Neurovascular unremarkable. Neuro: Awake, alert, oriented. Cranial nerves II through XII unremarkable. Cerebellum unremarkable. Motor and sensory unremarkable throughout. Exam nonfocal. Diagnostics: [] Therapeutics: [] Impression: Abscess [] Plan: Recommend I&D patient will not allow me to do an I&D she only wants antibiotics I recommend I&D she again refuses she was warned [] Definitive disposition and diagnosis as appropriate pending reevaluation and review of above. 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 Musculoskeletal History: Reports: None Neurological History: Reports: None Psychiatric History: Reports: None Endocrine/Metabolic History: Reports: None Insulin Pump Model and Strategic Intelligence Officer: N/A Hematologic History: Reports: None Immunologic History: Reports: None Oncologic (Cancer) History: Reports: None Dermatologic History: Reports: None - Infectious Disease History Infectious Disease History: Reports: None - Past Surgical History Head Surgeries/Procedures: Reports: None HEENT Surgical History: Reports: None Cardiovascular Surgical History: Reports: None Respiratory Surgical History: Reports: None GI Surgical History: Reports: None Female Surgical History: Reports: None Endocrine Surgical History: Reports: None Neurological Surgical History: Reports: None Musculoskeletal Surgical History: Reports: None Oncologic Surgical History: Reports: None Dermatological Surgical History: Reports: None Social & Family History - Family History Family Medical History: Noncontributory - Tobacco Use Smoking Status *Q: Never Smoker Second Hand Smoke Exposure: No - Caffeine Use Caffeine Use: Reports: Coffee - Recreational Drug Use Recreational Drug Use: No ED ROS GENERAL - Review of Systems Review Of Systems: See Below ED EXAM, SKIN/RASH Exam: See Below Course - Vital Signs Text/Narrative:: Patient does not want I&D I will start her on doxycycline she will be referred to surgery for follow-up. Last Recorded V/S: Last Vital Signs Temp 37.2 C 11/05/19 01:11 Pulse 105 H 11/05/19 01:11 Resp 18 11/05/19 01:11 BP 121/79 11/05/19 01:11 Pulse Ox 98 11/05/19 01:11 - Orders/Labs/Meds Orders: Active Orders 24 hr Category Date Time Status Doxycycline [Vibramycin] Med 11/05/19 01:26 Once 100 mg PO ONETIME ONE Ibuprofen [Motrin] Med 11/05/19 01:26 Once 800 mg PO ONETIME ONE Medication Orders Doxycycline Hyclate (Vibramycin) 100 mg PO ONETIME ONE Stop: 11/05/19 01:27 Ibuprofen (Motrin) 800 mg PO ONETIME ONE Stop: 11/05/19 01:27 Meds: Medications Generic Name Dose Route Start Last Admin Trade Name Michael PRN Reason Stop Dose Admin Doxycycline Hyclate 100 mg 11/05/19 01:26 Vibramycin PO 11/05/19 01:27 ONETIME ONE Ibuprofen 800 mg 11/05/19 01:26 Motrin PO 11/05/19 01:27 ONETIME ONE Departure - Departure Time of Disposition: :28 Disposition: Home, Self-Care 01 Condition: Good Clinical Impression: Abscess - Discharge Information *PRESCRIPTION DRUG MONITORING PROGRAM REVIEWED*: Not Applicable *COPY OF PRESCRIPTION DRUG MONITORING REPORT IN PATIENT CARINA: Not Applicable Instructions: Skin Abscess, [id number] Referrals: PCP,None [Primary Care Provider] - Additional Instructions: The following information is given to patients seen in the emergency department who are being discharged to home. This information is to outline your options for follow-up care. We provide all patients seen in our emergency department with a follow-up referral. The need for follow-up, as well as the timing and circumstances, are variable depending upon the specifics of your emergency department visit. If you don't have a primary care physician on staff, we will provide you with a referral. We always advise you to contact your personal physician following an emergency department visit to inform them of the circumstance of the visit and for follow-up with them and/or the need for any referrals to a consulting specialist. The emergency department will also refer you to a specialist when appropriate. This referral assures that you have the opportunity for follow-up care with a specialist. All of these measure are taken in an effort to provide you with optimal care, which includes your follow-up. Under all circumstances we always encourage you to contact your private physician who remains a resource for coordinating your care. When calling for follow-up care, please make the office aware that this follow-up is from your recent emergency room visit. If for any reason you are refused follow-up, please contact the [facility] Emergency Department at and asked to speak to the emergency department charge nurse. [facility] - General Surgery Professional Building [address] [place] [address], [address] [place] [address] Sepsis Event Note (ED) - Evaluation Sepsis Screening Result: No Definite Risk - Focused Exam Vital Signs: Vital Signs Temp Pulse Resp BP Pulse Ox 11/05/19 01:11 37.2 C 105 H 18 121/79 98 - My Orders Last 24 Hours: My Active Orders 11/05/19 01:26 Doxycycline [Vibramycin] 100 mg PO ONETIME ONE Ibuprofen [Motrin] 800 mg PO ONETIME ONE - Assessment/Plan Last 24 Hours: My Active Orders 11/05/19 01:26 Doxycycline [Vibramycin] 100 mg PO ONETIME ONE Ibuprofen [Motrin] 800 mg PO ONETIME ONE
== END 2019-11-05 01:39 | disposition home or self-care (01) ==
LOC: MW.ED 00:42
DX: L02.31 Cutaneous abscess of buttock (principal); Z88.0 Allergy status to penicillin
CPT/HCPCS: 99282; A9270-GY

== ENCOUNTER 2019-11-07 01:30 | Observation (INO) | payer MEDICAID ==
[2019-11-07] MEDS ORDERED: Sodium Chloride 0.9% 10 ML Syringe FLUSH PRN (01:51)
[2019-11-07] MEDS ORDERED: Sodium Chloride 0.9% 2.5 ML Syringe FLUSH PRN (01:51)
[2019-11-07] MEDS ORDERED: Morphine 4 MG/ML Syringe IVPUSH ONE ×2 (01:52→04:14)
[2019-11-07] MEDS ORDERED: Ondansetron 4 MG/2 ML SDV IVPUSH ONE (01:53)
--- NOTE | 2019-11-07 01:55 | EDM.PDOC ---
ED HPI GENERAL MEDICAL PROBLEM - General Chief Complaint: Skin Complaint Stated Complaint: ABCESS THAT IS GETTING WORSE Time Seen by Provider: 11/07/19 01:39 - History of Present Illness INITIAL COMMENTS - FREE TEXT/NARRATIVE: History of present illness: Patient presents with gluteal pain she was seen here 2 nights ago with concerns over an abscess she did not want to consider being seen for drainage but just wanted an antibiotic. She was placed on doxycycline and naproxen for pain and it has worsened since. She is having chills and subjective fever at home no other complaints no other concerns she has had this in the past and it went away with just antibiotics. Review of systems: As per history of present illness and below otherwise all systems reviewed and negative. Past medical history: As per history of present illness and as reviewed below otherwise noncontributory. Surgical history: As per history of present illness and as reviewed below otherwise noncontributory. Social history: No reported history of drug or alcohol abuse. Family history: As per history of present illness and as reviewed below otherwise noncontributory. Physical exam: HEENT: Atraumatic, normocephalic, pupils reactive, negative for conjunctival pallor or scleral icterus, mucous membranes moist, throat clear, neck supple, nontender, trachea midline. Lungs: Clear to auscultation, breath sounds equal bilaterally, chest nontender. Heart: S1S2, regular, negative for clicks, rubs, or JVD. Abdomen: Soft, nondistended, nontender. Negative for masses or hepatosplenomegaly. Negative for costovertebral tenderness. Pelvis: Stable nontender. Genitourinary: Deferred. Rectal: There is a tender indurated spot just caudad to the anus in her gluteal cleft no pointing or erythema is noted it is a deep structure Extremities: Atraumatic, negative for cords or calf pain. Neurovascular unremarkable. Neuro: Awake, alert, oriented. Cranial nerves II through XII unremarkable. Cerebellum unremarkable. Motor and sensory unremarkable throughout. Exam nonfocal. Diagnostics: [] Therapeutics: [] Impression: Perirectal or pilonidal cyst. [] Plan: We will obtain a CT of her pelvis to determine the extent of the lesion. [] Definitive disposition and diagnosis as appropriate pending reevaluation and review of above. 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 Musculoskeletal History: Reports: None Neurological History: Reports: None Psychiatric History: Reports: None Endocrine/Metabolic History: Reports: None 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 Hematologic History: Reports: None Immunologic History: Reports: None Oncologic (Cancer) History: Reports: None Dermatologic History: Reports: None - Infectious Disease History Infectious Disease History: Reports: None - Past Surgical History Head Surgeries/Procedures: Reports: None HEENT Surgical History: Reports: None Cardiovascular Surgical History: Reports: None Respiratory Surgical History: Reports: None GI Surgical History: Reports: None Female Surgical History: Reports: None Endocrine Surgical History: Reports: None Neurological Surgical History: Reports: None Musculoskeletal Surgical History: Reports: None Oncologic Surgical History: Reports: None Dermatological Surgical History: Reports: None Social & Family History - Family History Family Medical History: Noncontributory - Caffeine Use Caffeine Use: Reports: Coffee ED ROS GENERAL - Review of Systems Review Of Systems: See Below ED EXAM, SKIN/RASH Exam: See Below Course - Vital Signs Text/Narrative:: Patient is tachycardic after fluids and has a 16,[address] shows a fairly complex multiloculated perirectal abscess. This abscess is quite deep and complicated I recommend some cefepime due to her penicillin allergy and surgery consult. Patient becomes angry with me does not want surgery consult she does not want surgery she think she will get better with a antibiotic I had already written her an antibiotic to 48 hours ago which she states is not working and I need to write her the correct antibiotics to make her better I tried in several ways to explain to her that this will not get better with oral antibiotics and that she will get worse. She is refusing surgery consult she will be signed out AMA. She is encouraged to follow-up with the surgeon. Prior to departure I had the nurse make a last ditch effort to convince her that leaving is not in her best interest and that she will most certainly become worse. Patient is now willing to stay I will consult surgery. I discussed with Dr Scott at 0440 and she will admit the patient. Last Recorded V/S: Last Vital Signs Temp 36.6 C 11/07/19 01:47 Pulse 123 H 11/07/19 04:28 Resp 16 11/07/19 04:28 BP 114/66 11/07/19 04:28 Pulse Ox 98 11/07/19 04:28 - Orders/Labs/Meds Orders: Active Orders 24 hr Category Date Time Status Patient Status [ADT] Routine ADT 11/07/19 04:40 Ordered Sodium Chloride 0.9% [Normal Saline] 1,000 ml Med 11/07/19 04:12 Active IV .Bolus Sodium Chloride 0.9% [Normal Saline] 1,000 ml Med 11/07/19 04:14 Active IV .Bolus Sodium Chloride 0.9% [Saline Flush] Med 11/07/19 01:51 Active 10 ml FLUSH ASDIRECTED PRN Sodium Chloride 0.9% [Saline Flush] Med 11/07/19 01:51 Active 2.5 ml FLUSH ASDIRECTED PRN Saline Lock Insert [OM.PC] Stat Oth 11/07/19 01:51 Ordered Medication Orders Sodium Chloride (Normal Saline) 1,000 mls @ 999 mls/hr IV .Bolus ONE Stop: 11/07/19 05:12 Last Admin: 11/07/19 04:21 Dose: 999 mls/hr Documented by: [id number] Sodium Chloride (Normal Saline) 1,000 mls @ 999 mls/hr IV .Bolus ONE Stop: 11/07/19 05:14 Last Admin: 11/07/19 04:21 Dose: Not Given Documented by: [id number] Sodium Chloride (Saline Flush) 10 ml FLUSH ASDIRECTED PRN PRN Reason: Keep Vein Open Sodium Chloride (Saline Flush) 2.5 ml FLUSH ASDIRECTED PRN PRN Reason: Keep Vein Open Labs: Laboratory Tests 11/07/19 11/07/19 11/07/19 Range/Units 01:59 01:59 01:59 WBC 15.55 H (4.0-11.0) K/uL RBC 4.23 L (4.30-5.90) M/uL Hgb 12.3 (12.0-16.0) g/dL Hct 38.0 (36.0-46.0) % MCV 89.8 (80.0-98.0) fL MCH 29.1 (27.0-32.0) pg MCHC 32.4 (31.0-37.0) g/dL RDW Std Deviation 43.1 (28.0-62.0) fl RDW Coeff of Dalia 13 (11.0-15.0) % Plt Count 306 (150-400) K/uL MPV 10.40 (7.40-12.00) fL Neut % (Auto) 72.1 (48.0-80.0) % Lymph % (Auto) 15.5 L (16.0-40.0) % [place] % (Auto) 11.8 (0.0-15.0) % Eos % (Auto) 0.5 (0.0-7.0) % Baso % (Auto) 0.1 (0.0-1.5) % Neut # (Auto) 11.2 H (1.4-5.7) K/uL Lymph # (Auto) 2.4 (0.6-2.4) K/uL [place] # (Auto) 1.8 H (0.0-0.8) K/uL Eos # (Auto) 0.1 (0.0-0.7) K/uL Baso # (Auto) 0.0 (0.0-0.1) K/uL Nucleated RBC % 0.0 /100WBC Nucleated RBCs # 0 K/uL Sodium 139 (136-145) mmol/L Potassium 3.4 L (3.5-5.1) mmol/L Chloride 103 (98-107) mmol/L Carbon Dioxide 26.5 (21.0-32.0) mmol/L BUN 12 (7.0-18.0) mg/dL Creatinine 0.6 (0.6-1.0) mg/dL Est Cr Clr Drug Dosing 105.64 mL/min Estimated GFR (MDRD) > 60.0 ml/min Glucose 118 H (74-106) mg/dL Calcium 9.4 (8.5-10.1) mg/dL Total Bilirubin 0.5 (0.2-1.0) mg/dL AST 27 (15-37) IU/L ALT 62 (14-63) IU/L Alkaline Phosphatase 79 (46-116) U/L Total Protein 7.6 (6.4-8.2) g/dL Albumin 3.6 (3.4-5.0) g/dL Globulin 4.0 (2.6-4.0) g/dL Albumin/Globulin Ratio 0.9 (0.9-1.6) HCG, Qual NEGATIVE (NEG) Meds: Medications Generic Name Dose Route Start Last Admin Trade Name Freq PRN Reason Stop Dose Admin Sodium Chloride 1,000 mls @ 999 mls/hr 11/07/19 04:12 11/07/19 04:21 Normal Saline IV 11/07/19 05:12 999 mls/hr .Bolus ONE Administration Sodium Chloride 1,000 mls @ 999 mls/hr 11/07/19 04:14 11/07/19 04:21 Normal Saline IV 11/07/19 05:14 Not Given .Bolus ONE Sodium Chloride 10 ml 11/07/19 01:51 Saline Flush FLUSH ASDIRECTED PRN Keep Vein Open Sodium Chloride 2.5 ml 11/07/19 01:51 Saline Flush FLUSH ASDIRECTED PRN Keep Vein Open Discontinued Medications Generic Name Dose Route Start Last Admin Trade Name Michael PRN Reason Stop Dose Admin Cefepime HCl 2 gm/ Premix 50 mls @ 100 mls/hr 11/07/19 03:51 IV 11/07/19 04:20 ONETIME ONE Cefepime HCl 2 gm/ Premix 50 mls @ 100 mls/hr 11/07/19 04:13 11/07/19 04:21 IV 11/07/19 04:42 Not Given ONETIME ONE Cefepime HCl 2 gm/ Premix 50 mls @ 100 mls/hr 11/07/19 04:13 11/07/19 04:38 IV 11/07/19 04:42 100 mls/hr ONETIME ONE Administration Iopamidol 100 ml 11/07/19 03:18 11/07/19 03:19 Isovue-370 (76%) IVPUSH 11/07/19 03:19 100 ml ONETIME STA Administration Morphine Sulfate 4 mg 11/07/19 01:52 11/07/19 02:20 Morphine IVPUSH 11/07/19 01:53 4 mg ONETIME ONE Administration Morphine Sulfate 4 mg 11/07/19 04:14 11/07/19 04:22 Morphine IVPUSH 11/07/19 04:15 4 mg ONETIME ONE Administration Ondansetron HCl 4 mg 11/07/19 01:53 11/07/19 02:20 Zofran IVPUSH 11/07/19 01:54 4 mg ONETIME ONE Administration Departure - Departure Time of Disposition: 04:17 Disposition: Admitted As Inpatient 68 Condition: Fair Clinical Impression: Rectal abscess - Discharge Information *PRESCRIPTION DRUG MONITORING PROGRAM REVIEWED*: Not Applicable *COPY OF PRESCRIPTION DRUG MONITORING REPORT IN PATIENT CARINA: Not Applicable Referrals: PCP,None [Primary Care Provider] - Forms: ED Department Discharge Sepsis Event Note (ED) - Evaluation Sepsis Screening Result: No Definite Risk - Focused Exam Vital Signs: Vital Signs Temp Pulse Resp BP Pulse Ox 11/07/19 04:28 123 H 16 114/66 98 11/07/19 03:26 113 H 110/65 11/07/19 02:26 120 H 132/86 11/07/19 01:47 36.6 C 97 18 134/86 97 - My Orders Last 24 Hours: My Active Orders 11/07/19 01:51 Sodium Chloride 0.9% [Saline Flush] 10 ml FLUSH ASDIRECTED PRN Sodium Chloride 0.9% [Saline Flush] 2.5 ml FLUSH ASDIRECTED PRN Saline Lock Insert [OM.PC] Stat 11/07/19 04:12 Sodium Chloride 0.9% [Normal Saline] 1,000 ml IV .Bolus 11/07/19 04:14 Sodium Chloride 0.9% [Normal Saline] 1,000 ml IV .Bolus 11/07/19 04:40 Patient Status [ADT] Routine - Assessment/Plan Last 24 Hours: My Active Orders 11/07/19 01:51 Sodium Chloride 0.9% [Saline Flush] 10 ml FLUSH ASDIRECTED PRN Sodium Chloride 0.9% [Saline Flush] 2.5 ml FLUSH ASDIRECTED PRN Saline Lock Insert [OM.PC] Stat 11/07/19 04:12 Sodium Chloride 0.9% [Normal Saline] 1,000 ml IV .Bolus 11/07/19 04:14 Sodium Chloride 0.9% [Normal Saline] 1,000 ml IV .Bolus 11/07/19 04:40 Patient Status [ADT] Routine
[2019-11-07 02:31] LABS: BLOOD UREA NITROGEN,BUN 12 mg/dL (7.0-18.0); CARBON DIOXIDE,CO2 26.5 mmol/L (21.0-32.0); CHLORIDE,CL 103 mmol/L (98-107); GLUCOSE RANDOM 118 mg/dL (74-106); POTASSIUM,K 3.4 mmol/L (3.5-5.1); SODIUM,NA 139 mmol/L (136-145)
[2019-11-07] MEDS ORDERED: Iopamidol 755 Mg/ML 100 ML Bottle IVPUSH STA (03:18)
--- NOTE | 2019-11-07 03:50 | CT ---
INDICATION: Perirectal abscess COMPARISON: Noncontrast CT of the abdomen and pelvis from 04/25/2019 TECHNIQUE: CT examination of the abdomen and pelvis was performed with the uneventful intravenous administration of 100 cc of Isovue 370 while 3 mm thick axial sections were obtained from the lung bases through the pubic symphysis. Oral contrast was not administered. Please note that all CT scans at this facility use dose modulation, iterative reconstruction, and/or weight-based dosing when appropriate to reduce radiation dose to as low as reasonably achievable. FINDINGS: In the abdomen, the liver, spleen, pancreas, and adrenals are normal in appearance. The kidneys are normal in appearance. The gallbladder is normal in appearance. The abdominal aorta is normal in caliber with no sign of dilatation. There is no sign of retroperitoneal mass or adenopathy. The stomach, loops of small bowel, and colon in the abdomen are normal in appearance. In the pelvis, the appendix is normal in appearance with no sign of inflammatory process. The loops of small bowel and colon in the pelvis are normal in appearance. The rectum is normal in appearance. There is a new, large, complex perianal abscess with multiple loculations located posteriorly more prominently on the right than the left. The largest loculation is on the right, measuring 4.0 x 2.1 x 3.3 centimeters. The abscess appears to be located below the pelvic floor, with no definite penetration into the perirectal fat. The uterus and adnexal regions are normal in appearance. The urinary bladder is normal in appearance. There is no sign of pelvic or inguinal mass or adenopathy. There is no sign of free air or free fluid in the abdomen or pelvis. The lung bases are clear. The osseous structures are normal in appearance for the patient`s age. IMPRESSION: Normal CT of the abdomen with contrast. CT of the pelvis shows a new large multiloculated perianal abscess, located below the pelvic floor, without evidence of involvement of the perirectal space. The largest loculation is posteriorly and to the right, measuring 4.0 x 2.1 x 3.3 centimeters. Please note that all CT scans at this facility use dose modulation, iterative reconstruction, and/or weight-based dosing when appropriate to reduce radiation dose to as low as reasonably achievable. Dictated by Moises Noonan MD @ Nov 07 2019 3:42AM Signed by Dr. Moises Noonan @ Nov 07 2019 3:50AM
[2019-11-07] MEDS ORDERED: Cefepime 2 GM in Premix Bag 1 BAG IV ONE ×5 (03:51→04:13)
[2019-11-07] MEDS ORDERED: Sodium Chloride 0.9% 1,000 ML IV ONE ×2 (04:12→04:14)
[2019-11-07] MEDS: HYDROmorphone 1 MG/ML Syringe IVPUSH PRN ×2 (06:23→08:23)
[2019-11-07] MEDS: Lactated Ringers 1,000 ML IV SCH ×2 (06:24→21:00)
[2019-11-07] MEDS ORDERED: diphenhydrAMINE 50 MG/ML SDV IVPUSH ONE (07:42)
[2019-11-07] MEDS: Ciprofloxacin in D5W 400 MG in Premix Bag 1 BAG IV SCH ×4 (07:59→20:55)
--- NOTE | 2019-11-07 08:35 | PCM.HP.2 ---
H&P History of Present Illness - General Date of Service: 11/07/19 Admit Problem/Dx: Admission Diagnosis/Problem Admission Diagnosis/Problem Rectal abscess Source of Information: Patient History Limitations: Reports: No Limitations - History of Present Illness Initial Comments - Free Text/Narative: Patient is a 24 year old female who presents with a perianal abscess. She had a small perianal abscess in June. She went to a walk in clinic and they gave her antibiotics. She developed pain around her anus 6 days ago. She came to the ER and requested antibiotics and no further work up. She was given doxycycline. The pain and infection became worse. She developed fevers, chills, nausea, malaise, and felt like her buttocks was swollen. She presented to the ER early this mo rning. She was tachycardic on arrival. She had a leukocytosis of 15.5K. CT scan shows a large multiloculated abscess around the anus. rectal Pain Score (Numeric/FACES): 8 - Related Data Allergies/Adverse Reactions: Allergies Allergy/AdvReac Type Severity Reaction Status Date / Time hydromorphone [From Dilaudid] Allergy Itching Verified 11/07/19 07:45 Penicillins Allergy Edema Verified 11/07/19 07:45 Home Medications: Home Meds Doxycycline [Vibra-Tabs] 100 mg PO BID #20 tablet 11/05/19 [Rx] Naproxen [Naprosyn] 500 mg PO Q12HR #20 tab 11/05/19 [Rx] Past Medical History - Past Health History Medical/Surgical History: Denies Medical/Surgical History HEENT History: Reports: None Cardiovascular History: Reports: None Respiratory History: Reports: None Gastrointestinal History: Reports: None Genitourinary History: Reports: None [employer]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 Musculoskeletal History: Reports: None Neurological History: Reports: None Psychiatric History: Reports: None Endocrine/Metabolic History: Reports: None 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 Model and Supervisor Elementary Education: N/A Hematologic History: Reports: None Immunologic History: Reports: None Oncologic (Cancer) History: Reports: None Dermatologic History: Reports: None - Infectious Disease History Infectious Disease History: Reports: None - Past Surgical History Head Surgeries/Procedures: Reports: None HEENT Surgical History: Reports: None Cardiovascular Surgical History: Reports: None Respiratory Surgical History: Reports: None GI Surgical History: Reports: None Female Surgical History: Reports: None Endocrine Surgical History: Reports: None Neurological Surgical History: Reports: None Musculoskeletal Surgical History: Reports: None Oncologic Surgical History: Reports: None Dermatological Surgical History: Reports: None Social & Family History - Family History Family Medical History: Noncontributory - Tobacco Use Smoking Status *Q: Never Smoker - Caffeine Use Caffeine Use: Reports: Coffee, Soda - Recreational Drug Use Recreational Drug Use: No H&P Review of Systems - Review of Systems: Review Of Systems: Comprehensive ROS is negative, except as noted in HPI. Exam - Exam Exam: See Below - Vital Signs Vital Signs: Last Vital Signs Temp 36.8 C 11/07/19 06:20 Pulse 108 H 11/07/19 06:20 Resp 18 11/07/19 06:20 BP 118/62 11/07/19 06:20 Pulse Ox 98 11/07/19 06:20 Weight: 63 kg - Exam General: Alert, Oriented, Mild Distress HEENT: Conjunctiva Clear, Mucosa Moist & [place], Posterior Pharynx Clear Neck: Supple Lungs: Clear to Auscultation, Normal Respiratory Effort Cardiovascular: Regular Rhythm, Tachycardia GI/Abdominal Exam: Soft, Non-Tender. No: Distended, Guarding, Rigid, Rebound, Tender Rectal (Female) Exam: Other (right posterior lateral fluctuance associated with tenderness, warmth and edema) Extremities: Normal Inspection, Normal Range of Motion - Patient Data Lab Results Last 24 hrs: Laboratory Results - last 24 hr 11/07/19 11/07/19 11/07/19 Range/Units 01:59 01:59 01:59 WBC 15.55 H (4.0-11.0) K/uL RBC 4.23 L (4.30-5.90) M/uL Hgb 12.3 (12.0-16.0) g/dL Hct 38.0 (36.0-46.0) % MCV 89.8 (80.0-98.0) fL MCH 29.1 (27.0-32.0) pg MCHC 32.4 (31.0-37.0) g/dL RDW Std Deviation 43.1 (28.0-62.0) fl RDW Coeff of Dalia 13 (11.0-15.0) % Plt Count 306 (150-400) K/uL MPV 10.40 (7.40-12.00) fL Neut % (Auto) 72.1 (48.0-80.0) % Lymph % (Auto) 15.5 L (16.0-40.0) % [place] % (Auto) 11.8 (0.0-15.0) % Eos % (Auto) 0.5 (0.0-7.0) % Baso % (Auto) 0.1 (0.0-1.5) % Neut # (Auto) 11.2 H (1.4-5.7) K/uL Lymph # (Auto) 2.4 (0.6-2.4) K/uL [place] # (Auto) 1.8 H (0.0-0.8) K/uL Eos # (Auto) 0.1 (0.0-0.7) K/uL Baso # (Auto) 0.0 (0.0-0.1) K/uL Nucleated RBC % 0.0 /100WBC Nucleated RBCs # 0 K/uL Sodium 139 (136-145) mmol/L Potassium 3.4 L (3.5-5.1) mmol/L Chloride 103 (98-107) mmol/L Carbon Dioxide 26.5 (21.0-32.0) mmol/L BUN 12 (7.0-18.0) mg/dL Creatinine 0.6 (0.6-1.0) mg/dL Est Cr Clr Drug Dosing 105.64 mL/min Estimated GFR (MDRD) > 60.0 ml/min Glucose 118 H (74-106) mg/dL Calcium 9.4 (8.5-10.1) mg/dL Total Bilirubin 0.5 (0.2-1.0) mg/dL AST 27 (15-37) IU/L ALT 62 (14-63) IU/L Alkaline Phosphatase 79 (46-116) U/L Total Protein 7.6 (6.4-8.2) g/dL Albumin 3.6 (3.4-5.0) g/dL Globulin 4.0 (2.6-4.0) g/dL Albumin/Globulin Ratio 0.9 (0.9-1.6) HCG, Qual NEGATIVE (NEG) COVID-19 (ANKUR) (NEGATIVE) 11/07/19 Range/Units 05:22 WBC (4.0-11.0) K/uL RBC (4.30-5.90) M/uL Hgb (12.0-16.0) g/dL Hct (36.0-46.0) % MCV (80.0-98.0) fL MCH (27.0-32.0) pg MCHC (31.0-37.0) g/dL RDW Std Deviation (28.0-62.0) fl RDW Coeff of Dalia (11.0-15.0) % Plt Count (150-400) K/uL MPV (7.40-12.00) fL Neut % (Auto) (48.0-80.0) % Lymph % (Auto) (16.0-40.0) % [place] % (Auto) (0.0-15.0) % Eos % (Auto) (0.0-7.0) % Baso % (Auto) (0.0-1.5) % Neut # (Auto) (1.4-5.7) K/uL Lymph # (Auto) (0.6-2.4) K/uL [place] # (Auto) (0.0-0.8) K/uL Eos # (Auto) (0.0-0.7) K/uL Baso # (Auto) (0.0-0.1) K/uL Nucleated RBC % /100WBC Nucleated RBCs # K/uL Sodium (136-145) mmol/L Potassium (3.5-5.1) mmol/L Chloride (98-107) mmol/L Carbon Dioxide (21.0-32.0) mmol/L BUN (7.0-18.0) mg/dL Creatinine (0.6-1.0) mg/dL Est Cr Clr Drug Dosing mL/min Estimated GFR (MDRD) ml/min Glucose (74-106) mg/dL Calcium (8.5-10.1) mg/dL Total Bilirubin (0.2-1.0) mg/dL AST (15-37) IU/L ALT (14-63) IU/L Alkaline Phosphatase (46-116) U/L Total Protein (6.4-8.2) g/dL Albumin (3.4-5.0) g/dL Globulin (2.6-4.0) g/dL Albumin/Globulin Ratio (0.9-1.6) HCG, Qual (NEG) COVID-19 (ANKUR) NEGATIVE (NEGATIVE) Result Diagrams: 11/07/19 01:59 11/07/19 01:59 Sepsis Event Note - Evaluation Sepsis Screening Result: No Definite Risk - Focused Exam Vital Signs: Vital Signs Temp Pulse Resp BP BP Pulse Ox 11/07/19 06:20 36.8 C 108 H 18 118/62 98 11/07/19 05:15 36.9 C 120 H 104/52 L 99 11/07/19 04:28 123 H 16 114/66 98 11/07/19 03:26 113 H 110/65 11/07/19 02:26 120 H 132/86 11/07/19 01:47 36.6 C 97 18 134/86 97 Date Exam was Performed: 11/07/19 Time Exam was Performed: 10:13 - Problem List (1) Perianal abscess SNOMED Code(s): 55521464 ICD Code: K61.0 - ANAL ABSCESS Status: Acute Current Visit: Yes Problem List Initiated/Reviewed/Updated: Yes Orders Last 24hrs: Active Orders 24 hr Category Date Time Status Patient Status [ADT] Routine ADT 11/07/19 04:40 Active NPO Now [Nothing per Oral Now Diet] [DIET] Diet 11/07/19 Breakfast Active Ciprofloxacin in D5W [Cipro in D5W 400 MG/200 ML] 400 Med 11/07/19 08:00 Active mg Premix Bag 1 bag IV Q12H HYDROmorphone [Dilaudid] Med 11/07/19 04:45 Active 0.5 mg IVPUSH Q1H PRN Lactated Ringers [Ringers, Lactated] 1,000 ml Med 11/07/19 04:45 Active IV ASDIRECTED Ondansetron [Zofran] Med 11/07/19 04:45 Active 4 mg IVPUSH Q4H PRN Sodium Chloride 0.9% [Saline Flush] Med 11/07/19 01:51 Active 10 ml FLUSH ASDIRECTED PRN Sodium Chloride 0.9% [Saline Flush] Med 11/07/19 01:51 Active 2.5 ml FLUSH ASDIRECTED PRN metroNIDAZOLE/Normal Saline [Flagyl 500 MG in NS 100 ML Med 11/07/19 12:00 Active ] 250 mg Premix Bag 1 bag IV QID Saline Lock Insert [OM.PC] Stat Oth 11/07/19 01:51 Ordered Medication Orders Hydromorphone HCl (Dilaudid) 0.5 mg IVPUSH Q1H PRN PRN Reason: Pain Last Admin: 11/07/19 08:23 Dose: 0.5 mg Documented by: Admin: 11/07/19 06:23 Dose: 0.5 mg Documented by: CHICO Lactated Ringer's (Ringers, Lactated) 1,000 mls @ 125 mls/hr IV ASDIRECTED [facility] Last Admin: 11/07/19 06:24 Dose: 125 mls/hr Documented by: CHICO Ciprofloxacin/Dextrose 400 mg/ (Premix) 200 mls @ 200 mls/hr IV Q12H [facility] Last Admin: 11/07/19 07:59 Dose: 200 mls/hr Documented by: PROFLUC Metronidazole 250 mg/ Premix 50 mls @ 50 mls/hr IV QID [facility] Ondansetron HCl (Zofran) 4 mg IVPUSH Q4H PRN PRN Reason: Nausea/Vomiting Sodium Chloride (Saline Flush) 10 ml FLUSH ASDIRECTED PRN PRN Reason: Keep Vein Open Sodium Chloride (Saline Flush) 2.5 ml FLUSH ASDIRECTED PRN PRN Reason: Keep Vein Open Assessment/Plan Comment:: Patient is a 24 year old female with a very large perianal abscess. This is causing systemic signs of infection. I will give her a 1L bolus of NS. I switched her antibiotics to ciprofloxacin and Flagyl IV. She has a history of itching with hydromorphone. She has received IV ms and Dilaudid with the same result. Will avoid narcotics. IV benadryl given. IV tylenol to be given as well. I explained the pathophysiology of perianal abscess disease. The patient needs to undergo an exam under anesthesia with incision and drainage of this abscess and likely drain and/or seton placement. We discussed the procedure, expected perioperative course and risks of bleeding infection or damage to surrounding structures resulting in incontinence. She verbalized understanding and wishes to proceed.
[2019-11-07] MEDS ORDERED: diphenhydrAMINE 50 MG/ML SDV IVPUSH PRN (08:39)
[2019-11-07] MEDS ORDERED: Acetaminophen 1,000 MG in Premix Bag 1 BAG IV ONE (10:26)
[2019-11-07] MEDS ORDERED: Lactated Ringers 1,000 ML IV SCH (10:30)
[2019-11-07] MEDS ORDERED: Bupivacaine 0.5% 30 ML SDV ONE (12:19)
--- NOTE | 2019-11-07 12:20 | PCM.PREANE ---
Preanesthetic Assessment - Anesthesia/Transfusion/Family Hx Anesthesia History: Prior Anesthesia Without Reaction Family History of Anesthesia Reaction: No Transfusion History: Prior Transfusion Without Reaction Intubation History: Unknown - Review of Systems General: No Symptoms Pulmonary: No Symptoms Cardiovascular: No Symptoms Gastrointestinal: No Symptoms Neurological: No Symptoms Other: Reports: None - Physical Assessment Vital Signs: Last Vital Signs Temp 37.2 C 11/07/19 08:47 Pulse 129 H 11/07/19 08:47 Resp 16 11/07/19 08:47 BP 119/55 L 11/07/19 08:47 Pulse Ox 96 11/07/19 08:47 Height: 4 ft 11 in Weight: 63 kg ASA Class: 2E Mental Status: Alert & Oriented x3 Airway Class: Mallampati = 1 Dentition: Reports: Normal Dentition Thyro-Mental Finger Breadths: 3 Mouth Opening Finger Breadths: 3 ROM/Head Extension: Full Lungs: Clear to Auscultation, Normal Respiratory Effort Cardiovascular: Regular Rate, Regular Rhythm - Lab Values: Laboratory Last Values WBC 15.55 K/uL (4.0-11.0) H 11/07/19 01:59 RBC 4.23 M/uL (4.30-5.90) L 11/07/19 01:59 Hgb 12.3 g/dL (12.0-16.0) 11/07/19 01:59 Hct 38.0 % (36.0-46.0) 11/07/19 01:59 MCV 89.8 fL (80.0-98.0) 11/07/19 01:59 MCH 29.1 pg (27.0-32.0) 11/07/19 01:59 MCHC 32.4 g/dL (31.0-37.0) 11/07/19 01:59 RDW Std Deviation 43.1 fl (28.0-62.0) 11/07/19 01:59 RDW Coeff of Dalia 13 % (11.0-15.0) 11/07/19 01:59 Plt Count 306 K/uL (150-400) 11/07/19 01:59 MPV 10.40 fL (7.40-12.00) 11/07/19 01:59 Neut % (Auto) 72.1 % (48.0-80.0) 11/07/19 01:59 Lymph % (Auto) 15.5 % (16.0-40.0) L 11/07/19 01:59 Park % (Auto) 11.8 % (0.0-15.0) 11/07/19 01:59 Eos % (Auto) 0.5 % (0.0-7.0) 11/07/19 01:59 Baso % (Auto) 0.1 % (0.0-1.5) 11/07/19 01:59 Neut # (Auto) 11.2 K/uL (1.4-5.7) H 11/07/19 01:59 Lymph # (Auto) 2.4 K/uL (0.6-2.4) 11/07/19 01:59 Park # (Auto) 1.8 K/uL (0.0-0.8) H 11/07/19 01:59 Eos # (Auto) 0.1 K/uL (0.0-0.7) 11/07/19 01:59 Baso # (Auto) 0.0 K/uL (0.0-0.1) 11/07/19 01:59 Nucleated RBC % 0.0 /100WBC 11/07/19 01:59 Nucleated RBCs # 0 K/uL 11/07/19 01:59 Sodium 139 mmol/L (136-145) 11/07/19 01:59 Potassium 3.4 mmol/L (3.5-5.1) L 11/07/19 01:59 Chloride 103 mmol/L (98-107) 11/07/19 01:59 Carbon Dioxide 26.5 mmol/L (21.0-32.0) 11/07/19 01:59 BUN 12 mg/dL (7.0-18.0) 11/07/19 01:59 Creatinine 0.6 mg/dL (0.6-1.0) 11/07/19 01:59 Est Cr Clr Drug Dosing 105.64 mL/min 11/07/19 01:59 Estimated GFR (MDRD) > 60.0 ml/min 11/07/19 01:59 Glucose 118 mg/dL (74-106) H 11/07/19 01:59 Calcium 9.4 mg/dL (8.5-10.1) 11/07/19 01:59 Total Bilirubin 0.5 mg/dL (0.2-1.0) 11/07/19 01:59 AST 27 IU/L (15-37) 11/07/19 01:59 ALT 62 IU/L (14-63) 11/07/19 01:59 Alkaline Phosphatase 79 U/L (46-116) 11/07/19 01:59 Total Protein 7.6 g/dL (6.4-8.2) 11/07/19 01:59 Albumin 3.6 g/dL (3.4-5.0) 11/07/19 01:59 Globulin 4.0 g/dL (2.6-4.0) 11/07/19 01:59 Albumin/Globulin Ratio 0.9 (0.9-1.6) 11/07/19 01:59 HCG, Qual NEGATIVE (NEG) 11/07/19 01:59 COVID-19 (ANKUR) NEGATIVE (NEGATIVE) 11/07/19 05:22 - Allergies Allergies/Adverse Reactions: Allergies Allergy/AdvReac Type Severity Reaction Status Date / Time hydromorphone [From Dilaudid] Allergy Itching Verified 11/07/19 07:45 Penicillins Allergy Edema Verified 11/07/19 07:45 - Blood Blood Available: No - Anesthesia Plan Pre-Op Medication Ordered: None - Acknowledgements Anesthesia Type Planned: General Anesthesia Pt an Appropriate Candidate for the Planned Anesthesia: Yes Alternatives and Risks of Anesthesia Discussed w Pt/Guardian: Yes Pt/Guardian Understands and Agrees with Anesthesia Plan: Yes PreAnesthesia Questionnaire - Past Health History Medical/Surgical History: Denies Medical/Surgical History HEENT History: Reports: None Cardiovascular History: Reports: None Respiratory History: Reports: None Gastrointestinal History: Reports: Other (See Below) (large perirectal abscess) Genitourinary History: Reports: None [employer] SAL[employer] History: Reports: None Musculoskeletal History: Reports: None Neurological History: Reports: None Psychiatric History: Reports: None Endocrine/Metabolic History: Reports: None Hematologic History: Reports: None Immunologic History: Reports: None Oncologic (Cancer) History: Reports: None Dermatologic History: Reports: Other (See Below) (nipple rings, toungue ring and lower lip ring) - Infectious Disease History Infectious Disease History: Reports: None - Past Surgical History Head Surgeries/Procedures: Reports: None HEENT Surgical History: Reports: None Cardiovascular Surgical History: Reports: None Respiratory Surgical History: Reports: None GI Surgical History: Reports: None Female Surgical History: Reports: None Endocrine Surgical History: Reports: None Neurological Surgical History: Reports: None Musculoskeletal Surgical History: Reports: None Oncologic Surgical History: Reports: None Dermatological Surgical History: Reports: None - SUBSTANCE USE Smoking Status *Q: Never Smoker Recreational Drug Use History: No - HOME MEDS Home Medications: Home Meds Doxycycline [Vibra-Tabs] 100 mg PO BID #20 tablet 11/05/19 [Rx] Naproxen [Naprosyn] 500 mg PO Q12HR #20 tab 11/05/19 [Rx] - CURRENT (IN HOUSE) MEDS Current Meds: Current Medications Diphenhydramine HCl (Benadryl) 50 mg IVPUSH Q4H PRN PRN Reason: Itching Lactated Ringer's (Ringers, Lactated) 1,000 mls @ 125 mls/hr IV ASDIRECTED LI Last Admin: 11/07/19 06:24 Dose: 125 mls/hr Documented by: Ciprofloxacin/Dextrose 400 mg/ (Premix) 200 mls @ 200 mls/hr IV Q12H LI Last Admin: 11/07/19 07:59 Dose: 200 mls/hr Documented by: Metronidazole 250 mg/ Premix 50 mls @ 50 mls/hr IV QID LI Lactated Ringer's (Ringers, Lactated) 1,000 mls @ 1,000 mls/hr IV .BOLUS LI Ondansetron HCl (Zofran) 4 mg IVPUSH Q4H PRN PRN Reason: Nausea/Vomiting Sodium Chloride (Saline Flush) 10 ml FLUSH ASDIRECTED PRN PRN Reason: Keep Vein Open Sodium Chloride (Saline Flush) 2.5 ml FLUSH ASDIRECTED PRN PRN Reason: Keep Vein Open Discontinued Medications Diphenhydramine HCl (Benadryl) 50 mg IVPUSH ONETIME ONE Stop: 11/07/19 07:43 Last Admin: 11/07/19 07:48 Dose: 50 mg Documented by: Hydromorphone HCl (Dilaudid) 0.5 mg IVPUSH Q1H PRN PRN Reason: Pain Last Admin: 11/07/19 08:23 Dose: 0.5 mg Documented by: Cefepime HCl 2 gm/ Premix 50 mls @ 100 mls/hr IV ONETIME ONE Stop: 11/07/19 04:20 Last Admin: 11/07/19 07:34 Dose: Not Given Documented by: Sodium Chloride (Normal Saline) 1,000 mls @ 999 mls/hr IV .Bolus ONE Stop: 11/07/19 05:12 Last Admin: 11/07/19 04:21 Dose: 999 mls/hr Documented by: Cefepime HCl 2 gm/ Premix 50 mls @ 100 mls/hr IV ONETIME ONE Stop: 11/07/19 04:42 Last Admin: 11/07/19 04:21 Dose: Not Given Documented by: Cefepime HCl 2 gm/ Premix 50 mls @ 100 mls/hr IV ONETIME ONE Stop: 11/07/19 04:42 Last Admin: 11/07/19 04:38 Dose: 100 mls/hr Documented by: Sodium Chloride (Normal Saline) 1,000 mls @ 999 mls/hr IV .Bolus ONE Stop: 11/07/19 05:14 Last Admin: 11/07/19 04:21 Dose: Not Given Documented by: Acetaminophen 1,000 mg/ Premix 100 mls @ 400 mls/hr IV NOW ONE Stop: 11/07/19 10:40 Last Admin: 11/07/19 10:37 Dose: 400 mls/hr Documented by: Iopamidol (Isovue-370 (76%)) 100 ml IVPUSH ONETIME STA Stop: 11/07/19 03:19 Last Admin: 11/07/19 03:19 Dose: 100 ml Documented by: Morphine Sulfate (Morphine) 4 mg IVPUSH ONETIME ONE Stop: 11/07/19 01:53 Last Admin: 11/07/19 02:20 Dose: 4 mg Documented by: Morphine Sulfate (Morphine) 4 mg IVPUSH ONETIME ONE Stop: 11/07/19 04:15 Last Admin: 11/07/19 04:22 Dose: 4 mg Documented by: Ondansetron HCl (Zofran) 4 mg IVPUSH ONETIME ONE Stop: 11/07/19 01:54 Last Admin: 11/07/19 02:20 Dose: 4 mg Documented by:
[2019-11-07] MEDS: metroNIDAZOLE/Normal Saline 250 MG in Premix Bag 1 BAG IV SCH ×4 (12:22→23:54)
[2019-11-07] MEDS ORDERED: Sugammadex Sodium 200 MG/2 ML VIAL ONE (12:36)
[2019-11-07] MEDS ORDERED: Midazolam 1 MG/ML 2 ML SDV ONE (12:40)
[2019-11-07] MEDS ORDERED: Propofol 200 MG/20 ML SDV ONE (12:40)
[2019-11-07] MEDS ORDERED: fentaNYL 250 MCG/5 ML SDV ONE (12:40)
[2019-11-07] MEDS ORDERED: Rocuronium Bromide 50 MG/5 ML Syringe ONE (12:41)
[2019-11-07] MEDS ORDERED: Ondansetron 4 MG/2 ML SDV ONE (12:41)
[2019-11-07] MEDS ORDERED: Ketorolac 30 MG/ML SDV ONE (12:41)
[2019-11-07] MEDS ORDERED: Glycopyrrolate 0.2 MG/ML SDV ONE (12:41)
[2019-11-07] MEDS ORDERED: Lidocaine 2% 5 ML SDV ONE (12:41)
[2019-11-07] MEDS ORDERED: fentaNYL 100 MCG/2 ML SDV IVPUSH PRN (13:26)
[2019-11-07] MEDS ORDERED: Acetaminophen 1,000 MG in Premix Bag 1 BAG IV PRN (13:26)
[2019-11-07] MEDS ORDERED: fentaNYL 50 MCG/ML SDV IVPUSH PRN (14:06)
--- NOTE | 2019-11-07 14:09 | PCM.OPNOTE ---
- General Post-Op/Procedure Note Date of Surgery/Procedure: 11/07/19 Operative Procedure(s): Exam under anesthesia, incision and drainage perianal abscess, herve drain placement Findings: Complex posterior midline abscess that extends across midline (R>L) Pre Op Diagnosis: Perianal abscess Post-Op Diagnosis: same Anesthesia Technique: General ET Tube Primary Surgeon: Marlee Fuchs Fluid Replacement, Intraop: 1,100 EBL in mLs: 10 Surgical Drain/Tube Type: [place] Condition: Fair
--- NOTE | 2019-11-07 14:50 | PCM.POSTAN ---
POST ANESTHESIA ASSESSMENT - MENTAL STATUS Mental Status: Alert, Oriented - VITAL SIGNS Vital Signs: Last Vital Signs Temp 36.2 C 11/07/19 14:12 Pulse 102 H 11/07/19 14:43 Resp 14 11/07/19 14:43 BP 115/79 11/07/19 14:43 Pulse Ox 94 L 11/07/19 14:43 - RESPIRATORY Respiratory Status: Respiratory Rate WNL, Airway Patent, O2 Saturation Stable - CARDIOVASCULAR CV Status: Pulse Rate WNL, Blood Pressure Stable - GASTROINTESTINAL GI Status: No Symptoms - PAIN Pain Score: 0 - POST OP HYDRATION Hydration Status: Adequate & Stable - OBSERVATIONS Free Text/Narrative:: No anesthesia problems
[2019-11-07] MEDS: Ketorolac 10 MG Tab PO SCH ×2 (15:33→19:43)
[2019-11-07] MEDS: Ondansetron 4 MG/2 ML SDV IVPUSH PRN (16:36)
[2019-11-07] MEDS: Acetaminophen/Codeine 300-30 MG Tab PO PRN (23:35)
[2019-11-08] MEDS: Ketorolac 10 MG Tab PO SCH ×4 (02:18→20:48)
[2019-11-08] MEDS: metroNIDAZOLE/Normal Saline 250 MG in Premix Bag 1 BAG IV SCH ×2 (05:20→14:51)
[2019-11-08] MEDS: Acetaminophen/Codeine 300-30 MG Tab PO PRN (07:35)
[2019-11-08] MEDS: Ciprofloxacin in D5W 400 MG in Premix Bag 1 BAG IV SCH ×2 (08:28)
--- NOTE | 2019-11-08 10:15 | PCM.SURGPN ---
- General Info Date of Service: 11/08/19 Date of Surgery/Procedure: 11/07/19 POD#: 1 Functional Status: Reports: Pain Controlled, Tolerating Diet, Ambulating, Urinating - Review of Systems General: Reports: No Symptoms Pulmonary: Reports: No Symptoms Cardiovascular: Reports: No Symptoms Gastrointestinal: Reports: Other (soreness along buttocks ) Genitourinary: Reports: No Symptoms - Patient Data Vitals - Most Recent: Last Vital Signs Temp 36.8 C 11/08/19 08:24 Pulse 99 11/08/19 08:24 Resp 14 11/08/19 08:24 BP 107/63 11/08/19 08:24 Pulse Ox 94 L 11/08/19 08:24 Weight - Most Recent: 63 kg I&O - Last 24 Hours: Intake & Output 11/07/19 11/08/19 11/08/19 22:59 06:59 14:59 Intake Total 3010 2188 Output Total 1500 2200 Balance 1510 -12 Lab Results Last 24 Hrs: Laboratory Results - last 24 hr 11/08/19 Range/Units 06:21 WBC 11.36 H (4.0-11.0) K/uL RBC 3.78 L (4.30-5.90) M/uL Hgb 10.9 L (12.0-16.0) g/dL Hct 33.8 L (36.0-46.0) % MCV 89.4 (80.0-98.0) fL MCH 28.8 (27.0-32.0) pg MCHC 32.2 (31.0-37.0) g/dL RDW Std Deviation 42.3 (28.0-62.0) fl RDW Coeff of Dalia 13 (11.0-15.0) % Plt Count 267 (150-400) K/uL MPV 10.50 (7.40-12.00) fL Nucleated RBC % 0.0 /100WBC Nucleated RBCs # 0 K/uL Beau Results Last 24 Hrs: Microbiology 11/07/19 13:34 Gram Stain - Preliminary Perirectal Wound Culture - Preliminary NO GROWTH AFTER 1 DAY Med Orders - Current: Current Medications Acetaminophen/Codeine Phosphate (Tylenol With Codeine No.3 300mg/30mg) 2 tab PO Q4H PRN PRN Reason: Pain (moderate 4-6) Last Admin: 11/08/19 07:35 Dose: 2 tab Documented by: Diazepam (Valium) 2 mg IVPUSH Q6H PRN PRN Reason: Anxiety Last Admin: 11/08/19 06:59 Dose: 2 mg Documented by: Diphenhydramine HCl (Benadryl) 50 mg IVPUSH Q4H PRN PRN Reason: Itching Last Admin: 11/07/19 16:11 Dose: 50 mg Documented by: Fentanyl (Fentanyl) 50 mcg IVPUSH Q2HR PRN PRN Reason: Pain (severe 7-10) Lactated Ringer's (Ringers, Lactated) 1,000 mls @ 125 mls/hr IV ASDIRECTED [facility] Last Admin: 11/07/19 21:00 Dose: 125 mls/hr Documented by: Ciprofloxacin/Dextrose 400 mg/ (Premix) 200 mls @ 200 mls/hr IV Q12H [facility] Last Admin: 11/08/19 08:28 Dose: 200 mls/hr Documented by: Metronidazole 250 mg/ Premix 50 mls @ 50 mls/hr IV QID [facility] Last Admin: 11/08/19 05:20 Dose: 50 mls/hr Documented by: Ketorolac Tromethamine (Toradol) 10 mg PO Q6H [facility] Stop: 11/12/19 20:00 Last Admin: 11/08/19 08:26 Dose: 10 mg Documented by: Ondansetron HCl (Zofran) 4 mg IVPUSH Q4H PRN PRN Reason: Nausea/Vomiting Last Admin: 11/07/19 16:36 Dose: 4 mg Documented by: Sodium Chloride (Saline Flush) 10 ml FLUSH ASDIRECTED PRN PRN Reason: Keep Vein Open Sodium Chloride (Saline Flush) 2.5 ml FLUSH ASDIRECTED PRN PRN Reason: Keep Vein Open Discontinued Medications Bupivacaine HCl (Marcaine 0.5%) Confirm Administered Dose 30 ml .ROUTE .STK-MED ONE Stop: 11/07/19 12:20 Diphenhydramine HCl (Benadryl) 50 mg IVPUSH ONETIME ONE Stop: 11/07/19 07:43 Last Admin: 11/07/19 07:48 Dose: 50 mg Documented by: Fentanyl (Sublimaze) Confirm Administered Dose 250 mcg .ROUTE .STK-MED ONE Stop: 11/07/19 12:41 Fentanyl (Sublimaze) 50 mcg IVPUSH Q5M PRN PRN Reason: Pain Glycopyrrolate (Robinul) Confirm Administered Dose 0.2 mg .ROUTE .STK-MED ONE Stop: 11/07/19 12:42 Hydromorphone HCl (Dilaudid) 0.5 mg IVPUSH Q1H PRN PRN Reason: Pain Last Admin: 11/07/19 08:23 Dose: 0.5 mg Documented by: Cefepime HCl 2 gm/ Premix 50 mls @ 100 mls/hr IV ONETIME ONE Stop: 11/07/19 04:20 Last Admin: 11/07/19 07:34 Dose: Not Given Documented by: Sodium Chloride (Normal Saline) 1,000 mls @ 999 mls/hr IV .Bolus ONE Stop: 11/07/19 05:12 Last Admin: 11/07/19 04:21 Dose: 999 mls/hr Documented by: Cefepime HCl 2 gm/ Premix 50 mls @ 100 mls/hr IV ONETIME ONE Stop: 11/07/19 04:42 Last Admin: 11/07/19 04:21 Dose: Not Given Documented by: Cefepime HCl 2 gm/ Premix 50 mls @ 100 mls/hr IV ONETIME ONE Stop: 11/07/19 04:42 Last Admin: 11/07/19 04:38 Dose: 100 mls/hr Documented by: Sodium Chloride (Normal Saline) 1,000 mls @ 999 mls/hr IV .Bolus ONE Stop: 11/07/19 05:14 Last Admin: 11/07/19 04:21 Dose: Not Given Documented by: Lactated Ringer's (Ringers, Lactated) 1,000 mls @ 1,000 mls/hr IV .BOLUS LI Last Admin: 11/07/19 10:30 Dose: 1,000 mls/hr Documented by: Acetaminophen 1,000 mg/ Premix 100 mls @ 400 mls/hr IV NOW ONE Stop: 11/07/19 10:40 Last Admin: 11/07/19 10:37 Dose: 400 mls/hr Documented by: Acetaminophen 1,000 mg/ Premix 100 mls @ 400 mls/hr IV Q6H PRN PRN Reason: Pain Iopamidol (Isovue-370 (76%)) 100 ml IVPUSH ONETIME STA Stop: 11/07/19 03:19 Last Admin: 11/07/19 03:19 Dose: 100 ml Documented by: Ketorolac Tromethamine (Toradol) Confirm Administered Dose 30 mg .ROUTE .STK-MED ONE Stop: 11/07/19 12:42 Lidocaine (Xylocaine-Mpf 2%) Confirm Administered Dose 5 ml .ROUTE .STK-MED ONE Stop: 11/07/19 12:42 Midazolam HCl (Versed 1 Mg/Ml) Confirm Administered Dose 2 mg .ROUTE .STK-MED ONE Stop: 11/07/19 12:41 Morphine Sulfate (Morphine) 4 mg IVPUSH ONETIME ONE Stop: 11/07/19 01:53 Last Admin: 11/07/19 02:20 Dose: 4 mg Documented by: Morphine Sulfate (Morphine) 4 mg IVPUSH ONETIME ONE Stop: 11/07/19 04:15 Last Admin: 11/07/19 04:22 Dose: 4 mg Documented by: Ondansetron HCl (Zofran) 4 mg IVPUSH ONETIME ONE Stop: 11/07/19 01:54 Last Admin: 11/07/19 02:20 Dose: 4 mg Documented by: Ondansetron HCl (Zofran) Confirm Administered Dose 4 mg .ROUTE .STK-MED ONE Stop: 11/07/19 12:42 Propofol (Diprivan 20 Ml) Confirm Administered Dose 200 mg .ROUTE .STK-MED ONE Stop: 11/07/19 12:41 Rocuronium [place] (Rocuronium [place]) Confirm Administered Dose 50 mg .ROUTE .STK-MED ONE Stop: 11/07/19 12:42 Sugammadex Sodium (Bridion) Confirm Administered Dose 200 mg .ROUTE .STK-MED ONE Stop: 11/07/19 12:37 - Exam General: Alert, Oriented Lungs: Clear to Auscultation, Normal Respiratory Effort Cardiovascular: Regular Rate, Regular Rhythm GI/Abdominal Exam: Soft, Non-Tender, No Distention, No Mass Extremities: Normal Inspection Sepsis Event Note - Evaluation Sepsis Screening Result: Sepsis Risk - Focused Exam Vital Signs: Vital Signs Temp Pulse Resp BP Pulse Ox 11/08/19 08:24 36.8 C 99 14 107/63 94 L 11/08/19 04:00 36.4 C 93 18 101/55 L 96 11/08/19 00:15 105 H 11/08/19 00:00 37.7 C 130 H 20 119/77 97 Date Exam was Performed: 11/08/19 Time Exam was Performed: 10:08 - Problem List & Annotations (1) Perianal abscess SNOMED Code(s): 37942164 Code(s): K61.0 - ANAL ABSCESS Status: Acute Current Visit: Yes - Problem List Review Problem List Initiated/Reviewed/Updated: Yes - My Orders Last 24 Hours: Active Orders 24 hr Category Date Time Status NPO After Midnight [Nothing per Oral After Midnight Diet 11/08/19 Breakfast Active Diet] [DIET] ANAEROBIC CULTURE Routine Lab 11/07/19 13:34 Received CULTURE WOUND [RM] Routine Lab 11/07/19 13:34 Results GRAM STAIN [RM] Routine Lab 11/07/19 13:34 Results Acetaminophen/Codeine [Tylenol with Codeine No.3 300MG/ Med 11/07/19 14:04 Active 30MG] 2 tab PO Q4H PRN Ketorolac [Toradol] Med 11/07/19 14:30 Active 10 mg PO Q6H diazePAM [Valium] Med 11/07/19 14:15 Active 2 mg IVPUSH Q6H PRN fentaNYL Med 11/07/19 14:06 Active 50 mcg IVPUSH Q2HR PRN metroNIDAZOLE/Normal Saline [Flagyl 500 MG in NS 100 ML Med 11/07/19 12:00 Active ] 250 mg Premix Bag 1 bag IV QID Medication Orders Acetaminophen/Codeine Phosphate (Tylenol With Codeine No.3 300mg/30mg) 2 tab PO Q4H PRN PRN Reason: Pain (moderate 4-6) Last Admin: 11/08/19 07:35 Dose: 2 tab Documented by: Admin: 11/07/19 23:35 Dose: 2 tab Documented by: MARGOTH Diazepam (Valium) 2 mg IVPUSH Q6H PRN PRN Reason: Anxiety Last Admin: 11/08/19 06:59 Dose: 2 mg Documented by: Admin: 11/07/19 20:51 Dose: 2 mg Documented by: MARGOTH Diphenhydramine HCl (Benadryl) 50 mg IVPUSH Q4H PRN PRN Reason: Itching Last Admin: 11/07/19 16:11 Dose: 50 mg Documented by: ROXANE Fentanyl (Fentanyl) 50 mcg IVPUSH Q2HR PRN PRN Reason: Pain (severe 7-10) Lactated Ringer's (Ringers, Lactated) 1,000 mls @ 125 mls/hr IV ASDIRECTED [facility] Last Admin: 11/07/19 21:00 Dose: 125 mls/hr Documented by: Infusion: 11/07/19 14:24 Dose: 125 mls/hr Documented by: Admin: 11/07/19 06:24 Dose: 125 mls/hr Documented by: CHICO Ciprofloxacin/Dextrose 400 mg/ (Premix) 200 mls @ 200 mls/hr IV Q12H [facility] Last Admin: 11/08/19 08:28 Dose: 200 mls/hr Documented by: Infusion: 11/07/19 21:55 Dose: 200 mls/hr Documented by: Admin: 11/07/19 20:55 Dose: 200 mls/hr Documented by: Infusion: 11/07/19 08:59 Dose: 200 mls/hr Documented by: Admin: 11/07/19 07:59 Dose: 200 mls/hr Documented by: PROFLUC Metronidazole 250 mg/ Premix 50 mls @ 50 mls/hr IV QID [facility] Last Admin: 11/08/19 05:20 Dose: 50 mls/hr Documented by: Infusion: 11/08/19 00:54 Dose: 50 mls/hr Documented by: Admin: 11/07/19 23:54 Dose: 50 mls/hr Documented by: Infusion: 11/07/19 19:03 Dose: 50 mls/hr Documented by: Admin: 11/07/19 18:03 Dose: 50 mls/hr Documented by: Infusion: 11/07/19 13:29 Dose: 50 mls/hr Documented by: Admin: 11/07/19 12:29 Dose: 50 mls/hr Documented by: PROFLUC Ketorolac Tromethamine (Toradol) 10 mg PO Q6H [facility] Stop: 11/12/19 20:00 Last Admin: 11/08/19 08:26 Dose: 10 mg Documented by: [email or web address] Admin: 11/08/19 02:18 Dose: 10 mg Documented by: Admin: 11/07/19 19:43 Dose: 10 mg Documented by: Admin: 11/07/19 15:33 Dose: Not Given Documented by: ROXANE Ondansetron HCl (Zofran) 4 mg IVPUSH Q4H PRN PRN Reason: Nausea/Vomiting Last Admin: 11/07/19 16:36 Dose: 4 mg Documented by: ROXANE Sodium Chloride (Saline Flush) 10 ml FLUSH ASDIRECTED PRN PRN Reason: Keep Vein Open Sodium Chloride (Saline Flush) 2.5 ml FLUSH ASDIRECTED PRN PRN Reason: Keep Vein Open - Plan Plan (Free Text/Narrative):: Patient's tachycardia has resolved. Afebrile overnight. Patient complained of pain around her anus this morning but she had had no pain medications overnight while sleeping. She is feeling more comfortable at this time. Consented patient for a dressing change under anesthesia this afternoon. We'll pull out the packing wash out the wound and leave Jose Francisco in place for ongoing drainage. Will transition afterwards to oral antibiotics. Likely discharge home in the morning.
[2019-11-08] MEDS ORDERED: Propofol 200 MG/20 ML SDV ONE (11:20)
[2019-11-08] MEDS ORDERED: Lidocaine 2% 5 ML SDV ONE (11:20)
[2019-11-08] MEDS ORDERED: Ketamine 500 mg/10 ML MDV ONE (11:20)
[2019-11-08] MEDS ORDERED: fentaNYL 100 MCG/2 ML SDV ONE (11:20)
[2019-11-08] MEDS ORDERED: Midazolam 1 MG/ML 2 ML SDV ONE (11:20)
[2019-11-08] MEDS: Lactated Ringers 1,000 ML IV SCH ×2 (11:28→15:28)
--- NOTE | 2019-11-08 11:58 | PCM.OPNOTE ---
- General Post-Op/Procedure Note Date of Surgery/Procedure: 11/08/19 Operative Procedure(s): Exam under anesthesia, perianal abscess wound washout Findings: Posterior midline perianal abscess. Packing removed. Descanso left in place. Pre Op Diagnosis: Perianal abscess Post-Op Diagnosis: Perianal abscess Anesthesia Technique: MAC Primary Surgeon: Marlee Fuchs Condition: Fair Free Text/Narrative:: Intake & Output 11/07/19 11/08/19 11/08/19 22:59 06:59 14:59 Intake Total 3010 2188 200 Output Total 1500 2200 Balance 1510 -12 200
--- NOTE | 2019-11-08 12:17 | PCM.POSTAN ---
POST ANESTHESIA ASSESSMENT - MENTAL STATUS Mental Status: Alert, Oriented - VITAL SIGNS Vital Signs: Last Vital Signs Temp 36.3 C 11/08/19 11:51 Pulse 98 11/08/19 12:13 Resp 10 L 11/08/19 12:13 BP 108/77 11/08/19 12:13 Pulse Ox 95 11/08/19 12:13 - RESPIRATORY Respiratory Status: Respiratory Rate WNL, Airway Patent, O2 Saturation Stable - CARDIOVASCULAR CV Status: Pulse Rate WNL, Blood Pressure Stable - GASTROINTESTINAL GI Status: No Symptoms - PAIN Pain Score: 0 - POST OP HYDRATION Hydration Status: Adequate & Stable - OBSERVATIONS Free Text/Narrative:: No anesthesia problems
[2019-11-08] MEDS: metroNIDAZOLE 250 MG Tab PO SCH ×2 (12:39→17:46)
--- NOTE | 2019-11-08 17:46 | OR ---
SURGEON: MARLEE FUCHS MD DATE OF PROCEDURE: 11/07/2019 PREOPERATIVE DIAGNOSIS: Perianal abscess. POSTOPERATIVE DIAGNOSIS: Perianal abscess. PROCEDURE PERFORMED: Exam under anesthesia and wound washout. PRIMARY SURGEON: Marlee Fuchs MD ANESTHESIA: Monitored anesthesia care. FLUIDS: See Anesthesia record. ESTIMATED BLOOD LOSS: 5 mL. FINDINGS: Jose Francisco drain in good position. Abscess cavity packing was removed. Abscess cavity was washed out. It was explored and no further areas of loculation or fluid collections were noted. COMPLICATIONS: None. INDICATIONS: The patient is a 24-year-old female who underwent an incision and drainage of a large posterior midline perianal abscess yesterday in the operating room. A Gravity drain was placed for two counter incisions. The wound cavity was packed with packing strip. Given the size of the wound and the tenderness associated with this, the decision was made to take her to the operating room for her first dressing change under monitored anesthesia care. I explained the procedure to the patient and the risks including bleeding or subsequent infection. She verbalized understanding and wishes to proceed. PROCEDURE IN DETAIL: The patient was brought into the OR and placed in a left lateral decubitus position on the OR cart. A time-out was completed verifying the patient's name, age, date of , allergies, and procedure to be performed. Monitored anesthesia care was induced. I inspected the operative field. The previous packing strip was removed. There was a small amount of purulent material that was expressed after removing the packing strip. Using a fistula probe and hemostat, I explored the wound. No further areas of purulent material were noted. The wound was then washed out copiously with normal saline until it ran clear. The wound was then covered with 4 x 4 dressings, which were secured in place with mesh underwear. The patient tolerated the procedure well and was taken to the PACU in stable condition. GENTRY / HERMAN /[id number]
[2019-11-08] MEDS: Ciprofloxacin 500 MG Tab PO SCH (20:48)
[2019-11-08] MEDS: Ondansetron 4 MG/2 ML SDV IVPUSH PRN (22:55)
[2019-11-09] MEDS: Lactated Ringers 1,000 ML IV SCH (00:27)
[2019-11-09] MEDS: metroNIDAZOLE 250 MG Tab PO SCH ×2 (00:27→06:52)
[2019-11-09] MEDS: Acetaminophen/Codeine 300-30 MG Tab PO PRN (00:32)
[2019-11-09] MEDS: Ketorolac 10 MG Tab PO SCH ×2 (02:23→08:33)
[2019-11-09] MEDS: Ciprofloxacin 500 MG Tab PO SCH (08:33)
--- NOTE | 2019-11-09 09:36 | PCM.DCSUM1 ---
Discharge Summary - Hospital Course Free Text/Narrative:: Patient is a 24-year-old female who presented with a large perianal abscess. She been to the emergency room 2 nights before but refused any incision and drainage and wanted antibiotics alone. Despite antibiotics the patient's infection worsened she developed subjective fevers and chills at home. She's presented to the emergency room she was tachycardic. She was extremely tender along the posterior midline anoderm. CT scan showed a large multiloculated abscess to cross midline. She is admitted to the floor for IV fluids and IV antibiotics. The next day she was consented and taken to the operating room for an incision and drainage of this complex abscess under anesthesia. It was approximately 5 cm in size. A Jose Francisco drain was placed through 2 counterincisions. The wound was packed and the patient was taken back to the floor for ongoing fluid resuscit ation and IV antibiotics. By postop day 1 her tachycardia had finally resolved. The patient was noted to have itching with any narcotics administration. She was premedicated with IV Benadryl. No hives were noted. She was started on scheduled Toradol and switched to Tylenol with Codeine. This helped control her pain. The patient had significant anxiety and a small dose of IV Valium was given when n ecessary with good relief of her symptoms. She was taken to the operating room for dressing change and washout. There were no other loculated areas of purulent fluid. During both cases I inspected the posterior midline for any evidence of a fistula but when none was noted. The patient was transitioned over to oral antibiotics. She remained stable overnight and was discharged home in next day. - Discharge Data Discharge Date: 11/09/19 Discharge Disposition: Home, Self-Care 01 Condition: Fair - Referral to Home Health Primary Care Physician: PCP None - Discharge Diagnosis/Problem(s) (1) Perianal abscess SNOMED Code(s): 68529088 ICD Code: K61.0 - ANAL ABSCESS Status: Acute - Patient Summary/Data Operative Procedure(s) Performed: Exam under anesthesia, perianal abscess wound washout - Patient Instructions Diet: Regular Diet as Tolerated Activity: Rest and Relax Today Driving: Do Not Drive (while on narcotics and/or for one week ) Showering/Bathing: May Shower Showering/Bathing, Other: Take sitz baths daily and after bowel movements Notify Provider of: Fever, Increased Pain, Swelling and Redness - Discharge Plan *PRESCRIPTION DRUG MONITORING PROGRAM REVIEWED*: Yes *COPY OF PRESCRIPTION DRUG MONITORING REPORT IN PATIENT CARINA: Yes Prescriptions/Med Rec: Ciprofloxacin [Ciprofloxacin HCl] 500 mg PO BID #10 tablet metroNIDAZOLE 250 mg PO Q6H #20 tablet Ketorolac [Toradol] 10 mg PO Q6H PRN #20 tablet PRN Reason: Pain Home Medications: Home Meds Ciprofloxacin [Ciprofloxacin HCl] 500 mg PO BID #10 tablet 11/08/19 [Rx] Ketorolac [Toradol] 10 mg PO Q6H PRN #20 tablet 11/08/19 [Rx] metroNIDAZOLE 250 mg PO Q6H #20 tablet 11/08/19 [Rx] Patient Handouts: Incision and Drainage, Care After, Ketorolac tablets, Metronidazole injection, Ciprofloxacin tablets, Acetaminophen; Codeine tablets Referrals: Marlee Fuchs MD [Physician] - 11/15/19 9:00 am (Arrive 15 minutes early with a photo ID, insurance card, and a mask. ) - Discharge Summary/Plan Comment DC Time >30 min.: No - General Info Functional Status: Reports: Pain Controlled, Tolerating Diet, Ambulating - Review of Systems General: Reports: Fatigue HEENT: Reports: No Symptoms Pulmonary: Reports: No Symptoms Cardiovascular: Reports: No Symptoms Gastrointestinal: Reports: Decreased Appetite Genitourinary: Reports: No Symptoms Musculoskeletal: Reports: No Symptoms Skin: Reports: No Symptoms Neurological: Reports: No Symptoms - Patient Data Vitals - Most Recent: Last Vital Signs Temp 37.6 C 11/09/19 08:00 Pulse 94 11/09/19 08:00 Resp 14 11/09/19 08:00 BP 111/79 11/09/19 08:00 Pulse Ox 89 L 11/09/19 08:00 Weight - Most Recent: 63 kg I&O - Last 24 hours: Intake & Output 11/08/19 11/09/19 11/09/19 22:59 06:59 14:59 Intake Total 1092 600 Output Total 1800 950 Balance -708 -350 STEFAN Results - Last 24 hrs: Microbiology 11/07/19 13:34 Gram Stain - Preliminary Perirectal Wound Culture - Preliminary NO GROWTH AFTER 1 DAY Med Orders - Current: Current Medications Acetaminophen/Codeine Phosphate (Tylenol With Codeine No.3 300mg/30mg) 2 tab PO Q4H PRN PRN Reason: Pain (moderate 4-6) Last Admin: 11/09/19 00:32 Dose: 2 tab Documented by: Ciprofloxacin (Ciprofloxacin Hcl) 500 mg PO BID [facility] Last Admin: 11/09/19 08:33 Dose: 500 mg Documented by: Diazepam (Valium) 2 mg IVPUSH Q6H PRN PRN Reason: Anxiety Last Admin: 11/08/19 16:54 Dose: 2 mg Documented by: Diphenhydramine HCl (Benadryl) 50 mg IVPUSH Q4H PRN PRN Reason: Itching Last Admin: 11/07/19 16:11 Dose: 50 mg Documented by: Fentanyl (Fentanyl) 50 mcg IVPUSH Q2HR PRN PRN Reason: Pain (severe 7-10) Lactated Ringer's (Ringers, Lactated) 1,000 mls @ 125 mls/hr IV ASDIRECTED LI Last Admin: 11/09/19 00:27 Dose: 125 mls/hr Documented by: Ketorolac Tromethamine (Toradol) 10 mg PO Q6H [facility] Stop: 11/12/19 20:00 Last Admin: 11/09/19 08:33 Dose: 10 mg Documented by: Metronidazole (Metronidazole) 250 mg PO Q6H [facility] Last Admin: 11/09/19 06:52 Dose: 250 mg Documented by: Ondansetron HCl (Zofran) 4 mg IVPUSH Q4H PRN PRN Reason: Nausea/Vomiting Last Admin: 11/08/19 22:55 Dose: 4 mg Documented by: Sodium Chloride (Saline Flush) 10 ml FLUSH ASDIRECTED PRN PRN Reason: Keep Vein Open Sodium Chloride (Saline Flush) 2.5 ml FLUSH ASDIRECTED PRN PRN Reason: Keep Vein Open Discontinued Medications Bupivacaine HCl (Marcaine 0.5%) Confirm Administered Dose 30 ml .ROUTE .STK-MED ONE Stop: 11/07/19 12:20 Diphenhydramine HCl (Benadryl) 50 mg IVPUSH ONETIME ONE Stop: 11/07/19 07:43 Last Admin: 11/07/19 07:48 Dose: 50 mg Documented by: Fentanyl (Sublimaze) Confirm Administered Dose 250 mcg .ROUTE .STK-MED ONE Stop: 11/07/19 12:41 Fentanyl (Sublimaze) 50 mcg IVPUSH Q5M PRN PRN Reason: Pain Fentanyl (Sublimaze) Confirm Administered Dose 100 mcg .ROUTE .STK-MED ONE Stop: 11/08/19 11:21 Glycopyrrolate (Robinul) Confirm Administered Dose 0.2 mg .ROUTE .STK-MED ONE Stop: 11/07/19 12:42 Hydromorphone HCl (Dilaudid) 0.5 mg IVPUSH Q1H PRN PRN Reason: Pain Last Admin: 11/07/19 08:23 Dose: 0.5 mg Documented by: Cefepime HCl 2 gm/ Premix 50 mls @ 100 mls/hr IV ONETIME ONE Stop: 11/07/19 04:20 Last Admin: 11/07/19 07:34 Dose: Not Given Documented by: Sodium Chloride (Normal Saline) 1,000 mls @ 999 mls/hr IV .Bolus ONE Stop: 11/07/19 05:12 Last Admin: 11/07/19 04:21 Dose: 999 mls/hr Documented by: Cefepime HCl 2 gm/ Premix 50 mls @ 100 mls/hr IV ONETIME ONE Stop: 11/07/19 04:42 Last Admin: 11/07/19 04:21 Dose: Not Given Documented by: Cefepime HCl 2 gm/ Premix 50 mls @ 100 mls/hr IV ONETIME ONE Stop: 11/07/19 04:42 Last Admin: 11/07/19 04:38 Dose: 100 mls/hr Documented by: Sodium Chloride (Normal Saline) 1,000 mls @ 999 mls/hr IV .Bolus ONE Stop: 11/07/19 05:14 Last Admin: 11/07/19 04:21 Dose: Not Given Documented by: Ciprofloxacin/Dextrose 400 mg/ (Premix) 200 mls @ 200 mls/hr IV Q12H LI Last Admin: 11/08/19 08:28 Dose: 200 mls/hr Documented by: Metronidazole 250 mg/ Premix 50 mls @ 50 mls/hr IV QID LI Last Admin: 11/08/19 14:51 Dose: Not Given Documented by: Lactated Ringer's (Ringers, Lactated) 1,000 mls @ 1,000 mls/hr IV .BOLUS LI Last Admin: 11/07/19 10:30 Dose: 1,000 mls/hr Documented by: Acetaminophen 1,000 mg/ Premix 100 mls @ 400 mls/hr IV NOW ONE Stop: 11/07/19 10:40 Last Admin: 11/07/19 10:37 Dose: 400 mls/hr Documented by: Acetaminophen 1,000 mg/ Premix 100 mls @ 400 mls/hr IV Q6H PRN PRN Reason: Pain Iopamidol (Isovue-370 (76%)) 100 ml IVPUSH ONETIME STA Stop: 11/07/19 03:19 Last Admin: 11/07/19 03:19 Dose: 100 ml Documented by: Ketamine HCl (Ketalar) Confirm Administered Dose 500 mg .ROUTE .STK-MED ONE Stop: 11/08/19 11:21 Ketorolac Tromethamine (Toradol) Confirm Administered Dose 30 mg .ROUTE .STK-MED ONE Stop: 11/07/19 12:42 Lidocaine (Xylocaine-Mpf 2%) Confirm Administered Dose 5 ml .ROUTE .STK-MED ONE Stop: 11/07/19 12:42 Lidocaine (Xylocaine-Mpf 2%) Confirm Administered Dose 5 ml .ROUTE .STK-MED ONE Stop: 11/08/19 11:21 Midazolam HCl (Versed 1 Mg/Ml) Confirm Administered Dose 2 mg .ROUTE .STK-MED ONE Stop: 11/07/19 12:41 Midazolam HCl (Versed 1 Mg/Ml) Confirm Administered Dose 2 mg .ROUTE .STK-MED ONE Stop: 11/08/19 11:21 Morphine Sulfate (Morphine) 4 mg IVPUSH ONETIME ONE Stop: 11/07/19 01:53 Last Admin: 11/07/19 02:20 Dose: 4 mg Documented by: Morphine Sulfate (Morphine) 4 mg IVPUSH ONETIME ONE Stop: 11/07/19 04:15 Last Admin: 11/07/19 04:22 Dose: 4 mg Documented by: Ondansetron HCl (Zofran) 4 mg IVPUSH ONETIME ONE Stop: 11/07/19 01:54 Last Admin: 11/07/19 02:20 Dose: 4 mg Documented by: Ondansetron HCl (Zofran) Confirm Administered Dose 4 mg .ROUTE .STK-MED ONE Stop: 11/07/19 12:42 Propofol (Diprivan 20 Ml) Confirm Administered Dose 200 mg .ROUTE .STK-MED ONE Stop: 11/07/19 12:41 Propofol (Diprivan 20 Ml) Confirm Administered Dose 400 mg .ROUTE .STK-MED ONE Stop: 11/08/19 11:21 Rocuronium [place] (Rocuronium [place]) Confirm Administered Dose 50 mg .ROUTE .STK-MED ONE Stop: 11/07/19 12:42 Sugammadex Sodium (Bridion) Confirm Administered Dose 200 mg .ROUTE .STK-MED ONE Stop: 11/07/19 12:37 - Exam Quality Assessment: Reports: Supplemental Oxygen General: Reports: Alert, Oriented Lungs: Reports: Clear to Auscultation, Normal Respiratory Effort Cardiovascular: Reports: Regular Rate, Regular Rhythm GI/Abdominal Exam: Soft, Non-Tender, Other (Decreased swelling and tenderness along the soft tissues of the gluteal cleft) Back Exam: Reports: Normal Inspection Extremities: Normal Inspection
== END 2019-11-09 10:44 | disposition home or self-care (01) ==
LOC: MW.ED 01:30 → MW.MS 04:40
PROVIDERS: ADMIT Surgery; ATTEND Surgery
DX: K61.0 Anal abscess (principal); B96.89 Other specified bacterial agents as the cause of diseases classified elsewhere; Z11.59 Encounter for screening for other viral diseases; Z88.0 Allergy status to penicillin; Z88.5 Allergy status to narcotic agent
CPT/HCPCS: 36415; 46050; 74177; 80053; 84703; 85025; 85027; 87070; 87075; 87077; 87186; 87205; 87635; 96361; 96365; 96367; 96375; 96376; 99285; A9270; G0378; J0131; J0692; J0744; J1170; J1200; J1885; J2001; J2250; J2270; J2405; J2704; J3010; J3360; J3490; J7030; J7120; Q9967; 00400; 00902; U0002

== ENCOUNTER 2020-08-11 21:37 | Emergency (ER) | payer MEDICAID ==
[2020-08-11] MEDS ORDERED: Sodium Chloride 0.9% 10 ML Syringe FLUSH PRN (21:59)
[2020-08-11] MEDS ORDERED: Sodium Chloride 0.9% 2.5 ML Syringe FLUSH PRN (21:59)
[2020-08-11] MEDS ORDERED: Sodium Chloride 0.9% 1,000 ML IV ONE (21:59)
[2020-08-11] MEDS ORDERED: Ketorolac 15 MG/ML SDV IVPUSH ONE (21:59)
[2020-08-11] MEDS ORDERED: Ondansetron 4 MG/2 ML SDV IVPUSH ONE (21:59)
[2020-08-11 23:14] LABS: BLOOD UREA NITROGEN,BUN 12 mg/dL (7.0-18.0); CARBON DIOXIDE,CO2 26.8 mmol/L (21.0-32.0); CHLORIDE,CL 106 mmol/L (98-107); GLUCOSE RANDOM 90 mg/dL (74-106); LIPASE 90 U/L (73-393); POTASSIUM,K 3.5 mmol/L (3.5-5.1); SODIUM,NA 142 mmol/L (136-145)
--- NOTE | 2020-08-12 00:04 | EDM.PDOC ---
ED HPI GENERAL MEDICAL PROBLEM - General Chief Complaint: Gastrointestinal Problem Stated Complaint: MIGRAINE, NAUSEA, VOMITING Time Seen by Provider: 08/11/20 21:53 - History of Present Illness INITIAL COMMENTS - FREE TEXT/NARRATIVE: HISTORY AND PHYSICAL: History of present illness: This is a 25-year-old female with no significant past medical history who presents to the ER today secondary to midepigastric abdominal pain with associated nausea and vomiting for 3 days. Patient denies any recent fevers, shakes, chills. Patient denies any dysuria, frequency, urgency. Patient denies any diarrhea or constipation. Patient reports she had a normal bowel movement earlier today. Patient reports he has had 3 episodes of emesis today. Patient has any chest pain or shortness of breath. Patient has any history of hypertens ion, diabetes, liver, lung, kidney problems. Patient has had no prior abdominal surgeries. Patient reports that she had 1 miscarriage and 1 in the past. Patient reports she is currently on Depo. Patient reports she is sexually active with 1 partner with no vaginal discharge or vaginal bleeding at this time. Patient denies any melena or bright red blood per rectum. Patient denies any hematemesis or coffee-ground emesis. Patient reports she was able to tolerate p.o. solids and liquids earlier today. Review of systems: As per history of present illness and below otherwise all systems reviewed and negative. Past medical history: As per history of present illness and as reviewed below otherwise noncontributory. Surgical history: As per history of present illness and as reviewed below otherwise noncontributory. Social history: No reported history of drug or alcohol abuse. Family history: As per history of present illness and as reviewed below otherwise noncontributo ry. Physical exam: This patient was seen and evaluated during the 2019 SARS-CoV-2 novel coronavirus pandemic period. Community viral transmission is ongoing at time of this encounter and the emergency department is operating under pandemic response procedures. Constitutional: Patient is oriented to person, place, and time. Appears well- developed and well-nourished. No distress. HEENT: Moist mucous membranes Head: Normocephalic and atraumatic Eyes: Right eye exhibits no discharge. Left eye exhibits no discharge. No scleral icterus Neck: Normal range of motion. No tracheal deviation present. Cardiovascular: Normal rate and regular rhythm. Pulmonary: Effort normal, no respiratory distress. Abd: Soft, nondistended, no rebound/guarding, no psoas or obturator signs, no tenderness at Mcberney's point, no Alatorre's sign. Pt does not present with an exam that would be consistent with an acute surgical abdomen at this time, tenderness to palpation midepigastric region Musculoskeletal: Normal range of motion Neurologic: Alert and oriented to person, place and time. Skin: [place], warm and dry. Psychiatric: Normal mood and affect. Behavior is normal. Judgment and thought content normal. Nursing note and vital signs have been reviewed Diagnostics: CBC, CMP, urinalysis all within normal limits CT of the abdomen pelvis: Urine negative Therapeutics: Toradol 15 mg IV NSS x1 L Zofran 4 mg IV Assessment and plan: 25-year-old female who presents to the ER today secondary to midepigastric abdominal pain with associated nausea and vomiting. She reports her abdominal pain has been present for approximately 2 to 3 days. Patient reports emesis started today. Patient has no diarrhea. Patient's ER work-up is been unremarkable. Patient did receive 1 dose of Zofran and Toradol here in the ED with significant improvement in her symptoms. Patient reports that she feels much improved after the medication. Definitive disposition and diagnosis as appropriate pending reevaluation and review of above. Abdomen Pain Score (Numeric/FACES): 5 - Related Data Allergies Allergy/AdvReac Type Severity Reaction Status Date / Time hydromorphone [From Dilaudid] Allergy Itching Verified 08/11/20 21:55 Penicillins Allergy Edema Verified 08/11/20 21:55 Home Meds: Home Meds Omeprazole Magnesium [Prilosec Otc] 20 mg PO BID #30 tablet.dr 08/12/20 [Rx] Ondansetron [Zofran ODT] 4 mg PO Q6H PRN #12 tab.dis 08/12/20 [Rx] Past Medical History - Past Health History Medical/Surgical History: Denies Medical/Surgical History HEENT History: Reports: None Cardiovascular History: Reports: None Respiratory History: Reports: None Gastrointestinal History: Reports: Other (See Below) Genitourinary History: Reports: None ENGINE HEAD REPAIRER History: Reports: None Musculoskeletal History: Reports: None Neurological History: Reports: None Psychiatric History: Reports: None Endocrine/Metabolic History: Reports: None Insulin Pump Model and Pipe Finishing Supervisor: N/A Hematologic History: Reports: None Immunologic History: Reports: None Oncologic (Cancer) History: Reports: None Dermatologic History: Reports: Other (See Below) - Infectious Disease History Infectious Disease History: Reports: None - Past Surgical History Head Surgeries/Procedures: Reports: None HEENT Surgical History: Reports: None Cardiovascular Surgical History: Reports: None Respiratory Surgical History: Reports: None GI Surgical History: Reports: None Female Surgical History: Reports: None Endocrine Surgical History: Reports: None Neurological Surgical History: Reports: None Musculoskeletal Surgical History: Reports: None Oncologic Surgical History: Reports: None Dermatological Surgical History: Reports: None Social & Family History - Family History Family Medical History: No Pertinent Family History - Tobacco Use Tobacco Use Status *Q: Never Tobacco User Second Hand Smoke Exposure: No - Caffeine Use Caffeine Use: Reports: None - Recreational Drug Use Recreational Drug Use: No ED ROS GENERAL - Review of Systems Review Of Systems: See Below ED EXAM, GENERAL - Physical Exam Exam: See Below Course - Vital Signs Last Recorded V/S: Last Vital Signs Temp 97.9 F 08/11/20 21:52 Pulse 70 08/12/20 00:41 Resp 16 08/12/20 00:41 BP 118/76 08/12/20 00:41 Pulse Ox 97 08/12/20 00:41 - Orders/Labs/Meds Orders: Active Orders 24 hr Category Date Time Status Saline Lock Insert [OM.PC] Stat Oth 08/11/20 21:59 Ordered Labs: Laboratory Tests 08/11/20 08/11/20 08/11/20 Range/Units 22:41 22:41 22:50 WBC 7.11 (4.0-11.0) K/uL RBC 4.76 (4.30-5.90) M/uL Hgb 14.6 (12.0-16.0) g/dL Hct 43.3 (36.0-46.0) % MCV 91.0 (80.0-98.0) fL MCH 30.7 (27.0-32.0) pg MCHC 33.7 (31.0-37.0) g/dL RDW Std Deviation 43.5 (28.0-62.0) fl RDW Coeff of Dalia 13 (11.0-15.0) % Plt Count 355 (150-400) K/uL MPV 10.30 (7.40-12.00) fL Neut % (Auto) 45.4 L (48.0-80.0) % Lymph % (Auto) 44.0 H (16.0-40.0) % [place] % (Auto) 8.7 (0.0-15.0) % Eos % (Auto) 1.8 (0.0-7.0) % Baso % (Auto) 0.1 (0.0-1.5) % Neut # (Auto) 3.2 (1.4-5.7) K/uL Lymph # (Auto) 3.1 H (0.6-2.4) K/uL [place] # (Auto) 0.6 (0.0-0.8) K/uL Eos # (Auto) 0.1 (0.0-0.7) K/uL Baso # (Auto) 0.0 (0.0-0.1) K/uL Nucleated RBC % 0.0 /100WBC Nucleated RBCs # 0 K/uL Sodium (136-145) mmol/L Potassium (3.5-5.1) mmol/L Chloride (98-107) mmol/L Carbon Dioxide (21.0-32.0) mmol/L BUN (7.0-18.0) mg/dL Creatinine (0.6-1.0) mg/dL Est Cr Clr Drug Dosing Estimated GFR (MDRD) ml/min Glucose (74-106) mg/dL Calcium (8.5-10.1) mg/dL Total Bilirubin (0.2-1.0) mg/dL AST (15-37) IU/L ALT (14-63) IU/L Alkaline Phosphatase (46-116) U/L Total Protein (6.4-8.2) g/dL Albumin (3.4-5.0) g/dL Globulin (2.6-4.0) g/dL Albumin/Globulin Ratio (0.9-1.6) Lipase (73-393) U/L Urine Color YELLOW Urine Appearance CLEAR Urine pH 7.0 (5.0-8.0) Ur Specific [place] 1.025 (1.001-1.035) Urine Protein NEGATIVE (NEGATIVE) mg/dL Urine Glucose (UA) NEGATIVE (NEGATIVE) mg/dL Urine Ketones NEGATIVE (NEGATIVE) mg/dL Urine Occult Blood TRACE-INTACT H (NEGATIVE) Urine Nitrite NEGATIVE (NEGATIVE) Urine Bilirubin NEGATIVE (NEGATIVE) Urine Urobilinogen 0.2 (<2.0) EU/dL Ur Leukocyte Esterase NEGATIVE (NEGATIVE) Urine RBC 0-3 (0-2/HPF) Urine WBC 0-2 (0-5/HPF) Ur Epithelial Cells FEW (NONE-FEW) Urine Bacteria 1+ H (NEGATIVE) Urine Mucus LIGHT (NONE-MOD) Urine HCG, Qual NEGATIVE (NEGATIVE) 08/11/20 Range/Units 22:50 WBC (4.0-11.0) K/uL RBC (4.30-5.90) M/uL Hgb (12.0-16.0) g/dL Hct (36.0-46.0) % MCV (80.0-98.0) fL MCH (27.0-32.0) pg MCHC (31.0-37.0) g/dL RDW Std Deviation (28.0-62.0) fl RDW Coeff of Dalia (11.0-15.0) % Plt Count (150-400) K/uL MPV (7.40-12.00) fL Neut % (Auto) (48.0-80.0) % Lymph % (Auto) (16.0-40.0) % [place] % (Auto) (0.0-15.0) % Eos % (Auto) (0.0-7.0) % Baso % (Auto) (0.0-1.5) % Neut # (Auto) (1.4-5.7) K/uL Lymph # (Auto) (0.6-2.4) K/uL [place] # (Auto) (0.0-0.8) K/uL Eos # (Auto) (0.0-0.7) K/uL Baso # (Auto) (0.0-0.1) K/uL Nucleated RBC % /100WBC Nucleated RBCs # K/uL Sodium 142 (136-145) mmol/L Potassium 3.5 (3.5-5.1) mmol/L Chloride 106 (98-107) mmol/L Carbon Dioxide 26.8 (21.0-32.0) mmol/L BUN 12 (7.0-18.0) mg/dL Creatinine 1.0 (0.6-1.0) mg/dL Est Cr Clr Drug Dosing TNP Estimated GFR (MDRD) > 60.0 ml/min Glucose 90 (74-106) mg/dL Calcium 9.9 (8.5-10.1) mg/dL Total Bilirubin 0.2 (0.2-1.0) mg/dL AST 24 (15-37) IU/L ALT 40 (14-63) IU/L Alkaline Phosphatase 61 (46-116) U/L Total Protein 8.6 H (6.4-8.2) g/dL Albumin 4.4 (3.4-5.0) g/dL Globulin 4.2 H (2.6-4.0) g/dL Albumin/Globulin Ratio 1.1 (0.9-1.6) Lipase 90 (73-393) U/L Urine Color Urine Appearance Urine pH (5.0-8.0) Ur Specific [place] (1.001-1.035) Urine Protein (NEGATIVE) mg/dL Urine Glucose (UA) (NEGATIVE) mg/dL Urine Ketones (NEGATIVE) mg/dL Urine Occult Blood (NEGATIVE) Urine Nitrite (NEGATIVE) Urine Bilirubin (NEGATIVE) Urine Urobilinogen (<2.0) EU/dL Ur Leukocyte Esterase (NEGATIVE) Urine RBC (0-2/HPF) Urine WBC (0-5/HPF) Ur Epithelial Cells (NONE-FEW) Urine Bacteria (NEGATIVE) Urine Mucus (NONE-MOD) Urine HCG, Qual (NEGATIVE) Meds: Medications Discontinued Medications Generic Name Dose Route Start Last Admin Trade Name Freq PRN Reason Stop Dose Admin Sodium Chloride 1,000 mls @ 999 mls/hr 08/11/20 21:59 08/11/20 22:14 Normal Saline IV 08/11/20 22:59 999 mls/hr .Bolus ONE Administration Ketorolac Tromethamine 15 mg 08/11/20 21:59 08/11/20 22:15 Ketorolac 15 Mg/Ml Sdv IVPUSH 08/11/20 22:00 15 mg ONETIME ONE Administration Ondansetron HCl 4 mg 08/11/20 21:59 08/11/20 22:15 Ondansetron 4 Mg/2 Ml Sdv IVPUSH 08/11/20 22:00 4 mg ONETIME ONE Administration Ondansetron HCl 4 mg 08/12/20 00:16 08/12/20 00:24 Ondansetron 4 Mg/2 Ml Sdv IVPUSH 08/12/20 00:17 4 mg ONETIME ONE Administration Sodium Chloride 10 ml 08/11/20 21:59 08/11/20 22:15 Sodium Chloride 0.9% 10 Ml Syringe FLUSH 10 ml ASDIRECTED PRN Administration Keep Vein Open Sodium Chloride 2.5 ml 08/11/20 21:59 08/11/20 22:15 Sodium Chloride 0.9% 2.5 Ml Syringe FLUSH 2.5 ml ASDIRECTED PRN Administration Keep Vein Open Departure - Departure Time of Disposition: 02:51 Disposition: Home, Self-Care 01 Condition: Good Clinical Impression: Abdominal pain, Gastritis - Discharge Information Prescriptions: Omeprazole Magnesium [Prilosec Otc] 20 mg PO BID #30 tablet. Ondansetron [Zofran ODT] 4 mg PO Q6H PRN #12 tab.dis PRN Reason: Nausea Instructions: Gastritis, Adult, [id number], Abdominal Pain, Adult, [id number] Referrals: Makeda Spears CNM [Primary Care Provider] - Forms: ED Department Discharge Additional Instructions: You were seen and evaluated in the ER today secondary to pain in your upper abdomen. All your blood tests, urine tests, CAT scan were all normal today in the ED. The pain that you are experiencing is most likely secondary to inflammation of your stomach. You will be started on medication to assist you with helping to heal the lining of your stomach as well as a medication to help with your nausea. Please take your medication as directed. Prilosec 20 mg twice a day Zofran 4 mg dissolved under your tongue every 6 hours as needed for nausea As with all studies in the emergency department, the CT scan does have limitations if these are early symptoms to a more serious condition. Please make sure to return to the ER if you start experiencing increasing pain, fevers, pain moving to your right lower abdomen. Please return to the ER if you experience any new or concerning symptoms. The following information is given to patients seen in the emergency department who are being discharged to home. This information is to outline your options for follow-up care. We provide all patients seen in our emergency department with a follow-up referral. The need for follow-up, as well as the timing and circumstances, are variable depending upon the specifics of your emergency department visit. If you don't have a primary care physician on staff, we will provide you with a referral. We always advise you to contact your personal physician following an emergency department visit to inform them of the circumstance of the visit and for follow-up with them and/or the need for any referrals to a consulting specialist. The emergency department will also refer you to a specialist when appropriate. This referral assures that you have the opportunity for follow-up care with a specialist. All of these measure are taken in an effort to provide you with optimal care, which includes your follow-up. Under all circumstances we always encourage you to contact your private physician who remains a resource for coordinating your care. When calling for follow-up care, please make the office aware that this follow-up is from your recent emergency room visit. If for any reason you are refused follow-up, please contact the [facility] Emergency Department at and asked to speak to the emergency department charge nurse. [facility] - Primary Care [address] [place] [address] [place] [address] Sepsis Event Note (ED) - Evaluation Sepsis Screening Result: No Definite Risk - Focused Exam Vital Signs: Vital Signs Temp Pulse Resp BP Pulse Ox 08/12/20 00:41 70 16 118/76 97 08/11/20 23:03 98 16 131/53 L 98 08/11/20 21:52 97.9 F 103 H 14 133/93 H 100 - My Orders Last 24 Hours: My Active Orders 08/11/20 21:59 Saline Lock Insert [OM.PC] Stat - Assessment/Plan Last 24 Hours: My Active Orders 08/11/20 21:59 Saline Lock Insert [OM.PC] Stat
--- NOTE | 2020-08-12 00:13 | CT ---
INDICATION: Abdominal pain TECHNIQUE: CT abdomen and pelvis without contrast. COMPARISON: November 07, 2019 FINDINGS: Lower chest: Unremarkable. Liver: Unremarkable. Spleen: Unremarkable. Pancreas: Unremarkable. Gallbladder and bile ducts: Unremarkable. Adrenal glands: Unremarkable. Kidneys: Unremarkable. No kidney or ureteral stones and no hydronephrosis. GI tract: The appendix measures to 6.5 mm in size. There is no periappendiceal fat stranding. Vascular structures: Unremarkable. Lymph nodes: Unremarkable. Miscellaneous: Unremarkable. No free air or significant free fluid. Pelvic Organs: Unremarkable. Bones: Unremarkable for age. IMPRESSION: The appendix measures 6.5 mm in size. This was discussed with Dr. Payne at 12:10 a.m.. There is a low clinical suspicion for acute appendicitis, no fever, and no leukocytosis. Remainder of the exam is unremarkable. Please note that all CT scans at this facility use dose modulation, iterative reconstruction, and/or weight-based dosing when appropriate to reduce radiation dose to as low as reasonably achievable. Dictated by Laruen Simon MD @ 08/12/2020 12:10:[address] Lauren Simon @ Aug 12 2020 12:10AM
[2020-08-12] MEDS ORDERED: Ondansetron 4 MG/2 ML SDV IVPUSH ONE (00:16)
== END 2020-08-12 00:41 | disposition home or self-care (01) ==
LOC: MW.ED 21:37
DX: K29.70 Gastritis, unspecified, without bleeding (principal); Z88.5 Allergy status to narcotic agent; Z88.0 Allergy status to penicillin; Z79.899 Other long term (current) drug therapy
CPT/HCPCS: 36415; 74176; 80053; 81001; 81025; 83690; 85025; 96374; 96375; 96376; 99284; J1885; J2405; J7030; 99283

== ENCOUNTER 2021-03-09 18:25 | Emergency (ER) | payer MEDICAID ==
--- NOTE | 2021-03-09 19:54 | EDM.PDOC ---
ED HPI GENERAL MEDICAL PROBLEM - General Chief Complaint: Abdominal Pain Stated Complaint: POSSIBLE SEROMA FROM SURGERY Time Seen by Provider: 03/09/21 19:33 - History of Present Illness INITIAL COMMENTS - FREE TEXT/NARRATIVE: HISTORY AND PHYSICAL: History of present illness: This is a 26-year-old female with no significant past medical history who presents ER today secondary to concern of a seroma developing in her right lower quadrant after having liposuction performed approximately 3 weeks ago. Patient reports that she went to [place] for a [facility] butt lift and a liposuction. She reports that she has been doing well since the procedure. She reports that she has been wearing her compression shirt without any issues. She reports that over the last 7 to 8 days she has noticed some increased swelling to her right lower abdomen that appears to be somewhat fluctuant and waxes and wanes with size depending on how much pressure she applies to it. She denies any recent fevers, shakes, chills, nausea, vomiting, diarrhea, dysuria, frequency, urgency. She denies any redness or warmth to the area. She denies any drainage. Patient reports her pain is well controlled and has no issues with pain management. She reports that the area is not tender but "feels funny ". Patient denies any recent trauma but reports she has been doing some heavy lifting and bending over to clean the tub. Patient also reports that her compression short appears to have gotten loose on her and she has plans to purchase a tighter compression shirt to help with the healing post liposuction. Review of systems: As per history of present illness and below otherwise all systems reviewed and negative. Past medical history: As per history of present illness and as reviewed below otherwise noncontributory. Surgical history: As per history of present illness and as reviewed below otherwise noncontributory. Social history: No reported history of drug abuse. Family history: As per history of present illness and as reviewed below otherwise noncontributory. Physical exam: This patient was seen and evaluated during the 2019 SARS-CoV-2 novel coronavirus pandemic period. Community viral transmission is ongoing at time of this encounter and the emergency department is operating under pandemic response procedures. Constitutional: Patient is oriented to person, place, and time. Appears well- developed and well-nourished. No distress. HEENT: Moist mucous membranes Head: Normocephalic and atraumatic Eyes: Right eye exhibits no discharge. Left eye exhibits no discharge. No scleral icterus Neck: Normal range of motion. No tracheal deviation present. Cardiovascular: Normal rate and regular rhythm. Pulmonary: Effort normal, no respiratory distress. Abdominal: No distention Musculoskeletal: Normal range of motion Neurologic: Alert and oriented to person, place and time. Skin: [place], warm and dry. Psychiatric: Normal mood and affect. Behavior is normal. Judgment and thought content normal. Nursing note and vital signs have been reviewed Patient's ER physical exam is significant for an area of swelling to her right lower quadrant. Area is slightly fluctuant and appears to be consistent with a seroma. There is no surrounding warmth or erythema. Patient does not appear to be extremely tender but does wince when I palpate the area but coincidently, the patient winces when palpating throughout her entire abdomen. Patient reports that she feels that she has been slowly improving after the procedure 3 weeks ago and that she currently has less pain that she did last week. Diagnostics: [] Therapeutics: [] Assessment and plan: 26-year-old who presents to the ER today secondary to concern of a seroma developing in her right lower quadrant status post recent liposuction performed. Patient physical exam is consistent with a likely seroma in that area. Patient is unable to lay flat secondary to her recent [employer] [facility] butt lift and has not been able to lay on the gurney for my evaluation. My entire evaluation occurred while she was standing secondary to patient refusing to lay flat. I do not think that the patient would tolerate a CT scan of the abdomen pelvis at this time and I do not think it is highly indicated as her exam is rather benign and appears to be most consistent with a noninfected seroma. I have discussed with the patient management plan for seroma and that draining it would not be recommended at this time given the risks of infection that might occur. The area currently does not appear to be infected I do not think that she will need any antibiotics. Patient has been instructed to call her primary surgeon in the morning for further consultation and recommendations. Reassessment at the time of disposition demonstrates that the patient is in no acute distress. The patient has remained stable throughout the entire ED visit and is without objective evidence for acute process requiring urgent intervention or hospitalization. The patient is stable for discharge, counseling is provided as documented above, discussed symptomatic treatment and specific conditions for return. I have spoken with the patient/caregiver and discussed todays findings, in addition to providing specific details for the plan of care. Questions are answered and there is agreement with the plan. Definitive disposition and diagnosis as appropriate pending reevaluation and review of above. Left Arm Pain Score (Numeric/FACES): 5 - Related Data Allergies Allergy/AdvReac Type Severity Reaction Status Date / Time hydromorphone [From Dilaudid] Allergy Itching Verified 03/09/21 18:54 Penicillins Allergy Edema Verified 03/09/21 18:54 Past Medical History - Past Health History Medical/Surgical History: Denies Medical/Surgical History HEENT History: Reports: None Cardiovascular History: Reports: None Respiratory History: Reports: None Gastrointestinal History: Reports: Other (See Below) Genitourinary History: Reports: None CASTING PLUG ASSEMBLER History: Reports: None Musculoskeletal History: Reports: None Neurological History: Reports: None Psychiatric History: Reports: None Endocrine/Metabolic History: Reports: None Insulin Pump Model and Platform Software Engineer: N/A Hematologic History: Reports: None Immunologic History: Reports: None Oncologic (Cancer) History: Reports: None Dermatologic History: Reports: Other (See Below) - Infectious Disease History Infectious Disease History: Reports: None - Past Surgical History Head Surgeries/Procedures: Reports: None HEENT Surgical History: Reports: None Cardiovascular Surgical History: Reports: None Respiratory Surgical History: Reports: None GI Surgical History: Reports: None Female Surgical History: Reports: None Endocrine Surgical History: Reports: None Neurological Surgical History: Reports: None Musculoskeletal Surgical History: Reports: None Oncologic Surgical History: Reports: None Dermatological Surgical History: Reports: None Social & Family History - Family History Family Medical History: No Pertinent Family History - Tobacco Use Tobacco Use Status *Q: Current Every Day Tobacco User Years of Tobacco use: 4 Packs/Tins Daily: 0.5 - Caffeine Use Caffeine Use: Reports: Coffee - Alcohol Use Days Per Week of Alcohol Use: 1 Number of Drinks Per Day: 1 Total Drinks Per Week: 1 - Recreational Drug Use Recreational Drug Use: No ED ROS GENERAL - Review of Systems Review Of Systems: See Below ED EXAM, GENERAL - Physical Exam Exam: See Below Course - Vital Signs Last Recorded V/S: Last Vital Signs Temp 96.4 F L 03/09/21 18:47 Pulse 108 H 03/09/21 18:47 Resp 12 03/09/21 18:47 BP 117/83 03/09/21 18:47 Pulse Ox 96 03/09/21 18:47 Departure - Departure Time of Disposition: 19:54 Disposition: Home, Self-Care 01 Condition: Good Clinical Impression: Seroma Seroma, postoperative Qualifiers: Surgical complication system/body Area: skin Procedure type: dermatologic Qualified Code(s): L76.33 - Postprocedural seroma of skin and subcutaneous tissue following a dermatologic procedure - Discharge Information Instructions: Seroma Referrals: Marisa Stevens NP [Primary Care Provider] - Additional Instructions: You were seen and evaluated in ER today secondary to swelling to your abdomen after liposuction. This appears to most consistent with a seroma which is common after this procedure. Your seroma does not appear to be infected at this time and I do not think antibiotics would be warranted. As we discussed, I recommend that you rest and avoid any heavy lifting, exertion, straining. I would recommend that you utilize a compression shirt to help with compressing the seroma. Please return to the ER if you notice any redness, warmth or draina ge from your incision. Please call your plastic surgeon the morning to see if he agrees with the current plan of care and if he has any other further recommendations. The following information is given to patients seen in the emergency department who are being discharged to home. This information is to outline your options for follow-up care. We provide all patients seen in our emergency department with a follow-up referral. The need for follow-up, as well as the timing and circumstances, are variable depending upon the specifics of your emergency department visit. If you don't have a primary care physician on staff, we will provide you with a referral. We always advise you to contact your personal physician following an emergency department visit to inform them of the circumstance of the visit and for follow-up with them and/or the need for any referrals to a consulting specialist. The emergency department will also refer you to a specialist when appropriate. This referral assures that you have the opportunity for follow-up care with a specialist. All of these measure are taken in an effort to provide you with optimal care, which includes your follow-up. Under all circumstances we always encourage you to contact your private physician who remains a resource for coordinating your care. When calling for follow-up care, please make the office aware that this follow-up is from your recent emergency room visit. If for any reason you are refused follow-up, please contact the [facility] Emergency Department at and asked to speak to the emergency department charge nurse. [facility] [address] [place] [id number] [address] Sepsis Event Note (ED) - Evaluation Sepsis Screening Result: No Definite Risk - Focused Exam Vital Signs: Vital Signs Temp Pulse Resp BP Pulse Ox 03/09/21 18:47 96.4 F L 108 H 12 117/83 96
== END 2021-03-09 20:10 | disposition home or self-care (01) ==
LOC: MW.ED 18:25
DX: L76.33 Postprocedural seroma of skin and subcutaneous tissue following a dermatologic procedure (principal); Z88.5 Allergy status to narcotic agent; Z88.0 Allergy status to penicillin; Z72.0 Tobacco use
CPT/HCPCS: 99283

== ENCOUNTER 2021-07-18 12:58 | Emergency (ER) | payer MEDICAID ==
[2021-07-18] MEDS ORDERED: Dexamethasone 10 MG/ML SDV IVPUSH ONE (13:11)
== END 2021-07-18 13:31 | disposition home or self-care (01) ==
LOC: MW.ED 12:58
DX: L30.9 Dermatitis, unspecified (principal); Z88.0 Allergy status to penicillin; Z88.5 Allergy status to narcotic agent
CPT/HCPCS: 96374; 99283; J1100; 99282

== ENCOUNTER 2021-07-24 16:11 | Emergency (ER) | payer MEDICAID ==
[2021-07-24] MEDS ORDERED: Ondansetron 4 MG Tab.DIS PO ONE (16:52)
[2021-07-24] MEDS ORDERED: Ketorolac 60 MG/2 ML SDV IM ONE (16:53)
[2021-07-24 17:39] LABS: BLOOD UREA NITROGEN,BUN 14 mg/dL (7.0-18.0); CARBON DIOXIDE,CO2 24.3 mmol/L (21.0-32.0); CHLORIDE,CL 100 mmol/L (98-107); GLUCOSE RANDOM 116 mg/dL (74-106); POTASSIUM,K 3.9 mmol/L (3.5-5.1); SODIUM,NA 137 mmol/L (136-145)
[2021-07-24 17:43] LABS: CORONAVIRUS COVID-19 NAA NEGATIVE (NEGATIVE); INFLUENZA A NAA POSITIVE (NEGATIVE); INFLUENZA B NAA NEGATIVE (NEGATIVE)
== END 2021-07-24 19:21 | disposition home or self-care (01) ==
LOC: MW.ED 16:11
DX: J10.1 Influenza due to other identified influenza virus with other respiratory manifestations (principal); Z88.0 Allergy status to penicillin; Z88.5 Allergy status to narcotic agent; Z20.822 Contact with and (suspected) exposure to COVID-19
CPT/HCPCS: 0240U; 36415; 71045; 80053; 85025; 96372; 99284; A9270; J1885

== ENCOUNTER 2021-12-22 00:05 | Emergency (ER) | payer BC ==
[2021-12-22] MEDS: Ketorolac 30 MG/ML SDV IVPUSH ONE (00:40)
[2021-12-22] MEDS: Ondansetron 4 MG/2 ML SDV IVPUSH ONE (00:40)
[2021-12-22] MEDS: Sodium Chloride 0.9% 1,000 ML IV ONE (00:41)
[2021-12-22 01:20] LABS: CARBON DIOXIDE,CO2 27.3 mmol/L (21.0-32.0); POTASSIUM,K 3.8 mmol/L (3.5-5.1)
== END 2021-12-22 01:36 | disposition home or self-care (01) ==
LOC: MW.ED 00:05
DX: R51.9 Headache, unspecified (principal); Z88.6 Allergy status to analgesic agent; Z88.0 Allergy status to penicillin; Z79.899 Other long term (current) drug therapy; Z86.16 Personal history of COVID-19; Z20.822 Contact with and (suspected) exposure to COVID-19
CPT/HCPCS: 36415; 80053; 81001; 83690; 84703; 85025; 96361; 96374; 96375; 99284; 99284-25; J1885; J2405; J7030; U0002

== ENCOUNTER 2021-12-27 13:02 | Emergency (ER) | payer BC | END 2021-12-27 14:09 | disposition left against medical advice (07) | LOC: MW.ED 13:02 | DX: Z53.21 Procedure and treatment not carried out due to patient leaving prior to being seen by health care provider (principal) ==

== ENCOUNTER 2022-06-19 13:53 | Emergency (ER) | payer MEDICAID ==
[2022-06-19] MEDS ORDERED: diphenhydrAMINE 50 MG/ML SDV ONE (13:59)
[2022-06-19] MEDS ORDERED: methylPREDNISolone Sodium Succinate 125 MG/2 ML SDV ONE (13:59)
[2022-06-19] MEDS ORDERED: EPINEPHrine 1 MG/1 ML Amp ONE (13:59)
[2022-06-19] MEDS ORDERED: diphenhydrAMINE 50 MG/ML SDV IVPUSH STA (14:05)
[2022-06-19] MEDS ORDERED: methylPREDNISolone Sodium Succinate 125 MG/2 ML SDV IVPUSH STA (14:06)
[2022-06-19] MEDS ORDERED: Famotidine 20 MG/2 ML SDV IVPUSH STA (14:06)
[2022-06-19] MEDS ORDERED: Tetracaine HCl/PF 0.5% 4 ML Bottle EYEBOTH STA (14:10)
[2022-06-19] MEDS ORDERED: Sodium Chloride 0.9% 10 ML Syringe FLUSH PRN (14:11)
[2022-06-19] MEDS ORDERED: Sodium Chloride 0.9% 2.5 ML Syringe FLUSH PRN (14:11)
[2022-06-19 14:55] LABS: CARBON DIOXIDE,CO2 26.3 mmol/L (21.0-32.0); POTASSIUM,K 3.7 mmol/L (3.5-5.1)
[2022-06-19] MEDS ORDERED: EPINEPHrine 1 MG/1 ML Amp SUBCUT STA (15:01)
[2022-06-19] MEDS ORDERED: Sodium Chloride 0.9% 1,000 ML IV STA (15:03)
== END 2022-06-19 16:50 | disposition home or self-care (01) ==
LOC: MW.ED 13:53
DX: T78.2XXA Anaphylactic shock, unspecified, initial encounter (principal); T78.3XXA Angioneurotic edema, initial encounter; H10.13 Acute atopic conjunctivitis, bilateral; Z88.5 Allergy status to narcotic agent; Z88.0 Allergy status to penicillin; Z86.16 Personal history of COVID-19
CPT/HCPCS: 36415; 80053; 85025; 96361; 96372; 96374; 96375; 99283; J0171; J1200; J2930; J3490; J7030

== ENCOUNTER 2022-06-29 10:18 | Emergency (ER) | payer MEDICAID | END 2022-06-29 11:36 | disposition left against medical advice (07) | LOC: MW.ED 10:18 | DX: Z53.21 Procedure and treatment not carried out due to patient leaving prior to being seen by health care provider (principal) ==

== ENCOUNTER 2022-06-29 11:48 | Emergency (ER) | payer MEDICAID ==
[2022-06-29] MEDS ORDERED: Tetracaine HCl/PF 0.5% 4 ML Bottle EYEBOTH STA (12:52)
[2022-06-29] MEDS ORDERED: Clindamycin HCl 150 MG Cap PO STA (12:53)
[2022-06-29] MEDS ORDERED: Tetracaine HCl/PF 0.5% 4 ML Bottle ONE (12:54)
[2022-06-29] MEDS ORDERED: Acetaminophen/Butalbital/Caffeine 325-50-40 MG Tab PO ONE (12:56)
[2022-06-29] MEDS ORDERED: Ketorolac 30 MG/ML SDV IM ONE (12:57)
== END 2022-06-29 13:45 | disposition home or self-care (01) ==
LOC: MW.ED 11:48
DX: R51.9 Headache, unspecified (principal); H10.9 Unspecified conjunctivitis; Z88.5 Allergy status to narcotic agent; Z88.0 Allergy status to penicillin; Z86.16 Personal history of COVID-19
CPT/HCPCS: 96372; 99283; A9270; J1885; J3490

== ENCOUNTER 2022-08-22 05:53 | Emergency (ER) | payer MEDICAID ==
[2022-08-22] MEDS ORDERED: Ketorolac 30 MG/ML SDV IM ONE (06:02)
[2022-08-22] MEDS ORDERED: Cyclobenzaprine 10 MG Tab PO ONE (06:02)
== END 2022-08-22 06:10 | disposition home or self-care (01) ==
LOC: MW.ED 05:53
DX: M54.6 Pain in thoracic spine (principal); Z88.0 Allergy status to penicillin; Z88.5 Allergy status to narcotic agent; Z86.16 Personal history of COVID-19; X50.0XXA Overexertion from strenuous movement or load, initial encounter
CPT/HCPCS: 96372; 99283; A9270; J1885